=== PATIENT | female | born 1955 | race Hispanic/Latino ===

== ENCOUNTER 2020-06-18 00:52 | Inpatient (IN) | payer OTHER, SELFPAY ==
--- NOTE | ~2020-06-18 | CT_ITS ---
EXAMINATION: CT abdomen pelvis w con INDICATION: Abdominal pain TECHNIQUE: Computed tomographic images of the abdomen and pelvis were obtained after the administrati on of 100 cc of Omnipaque 350 intravenous contrast. The dose-length product (DLP) was 532.62 mGy-cm. Automated exposure control and iterative reconstruction technique were employed. COMPARISON: 12/17/2017 FINDINGS: Minimal dependent atelectasis is present in the lung bases. The heart size is normal. The g allbladder is surgically absent. The liver is diffusely low in attenuation when compared with the spl een, consistent with hepatic steatosis. There is mild fat stranding surrounding the head of the pancr eas. The spleen is normal. There are stable bilateral adrenal masses, consistent with adenomas. There is a 1.4 cm intermediate attenuating lesion in the left kidney. Cysts of the right kidney measure up to 10 mm. There are 2 mm nonobstructing stones in the lower pole of the kidneys. The appendix is nor mal. No pathologically enlarged abdominal or pelvic lymph nodes are identified. There is no free intr aperitoneal gas or evidence of bowel obstruction. There is mild lumbar spondylosis. IMPRESSION: 1. Acute pancreatitis, likely interstitial edematous. 2. Indeterminate right kidney lesion which could reflect a proteinaceous cyst. Follow-up by nonemerge nt MRI without and with contrast is recommended. 3. Bilateral nonobstructing nephrolithiasis. Reviewed, dictated and finalized at location A. TRIMMER IMPRESSION: 1. Acute pancreatitis, likely interstitial edematous. 2. Indeterminate right kidney lesion which could reflect a proteinaceous cyst. Follow-up by nonemergent MRI without and with contrast is recommended. 3. Bilateral nonobstructing nephrolithiasis.
--- NOTE | ~2020-06-18 | MR_ITS ---
EXAMINATION: MR MRCP wo/w con/w 3D wo ind DATE: 06/18/2020 12:15 INDICATION: Epigastric abdominal pain and acute pancreatitis TECHNIQUE: Magnetic resonance imaging (MRI) of the abdomen was performed without and with intravenous contrast. Sequences included coronal T2-weighted SS-FSE ARC, coronal T2-weighted FS SS-FSE, coronal T2-weighted 2D FS FIESTA, Water:Coronal LAVA-Flex, sagittal T2-weighted SS-FSE ARC, axial SSFSE ARC, axial 3D DualEcho, axial DWI B=600, axial T1-weighted LAVA, FAT:Coronal LAVA-Flex, and coronal in and opposed phase LAVA-Flex. Thick-slab T2-weighted FRFSE-XL images were obtained for magnetic resonance cholangiopancreatography (MRCP). Maximum intensity projection 3-D reconstructions of the volumetric data were created by the technologist. Postcontrast sequences included a time course of axial T1-weig hted LAVA, FAT:Coronal LAVA-Flex, coronal in and opposed phase LAVA-Flex, and Water:Coronal LAVA-Flex . COMPARISON: CT from today CONTRAST: Multihance, 15 cc FINDINGS: ABDOMEN MRI: There is loss of hepatic parenchymal signal on opposed phase imaging, consistent with he patic steatosis. The spleen is normal. There are two 2 cm left adrenal masses and a 2 cm right adrena l mass which demonstrate loss of signal intensity on opposed phase images, consistent with adenomas. There are dilated loops of bowel. Cysts of the kidneys measure up to 9 mm on the right. There is a 1. 4 cm hemorrhagic cyst of the left kidney lower pole corresponding to the lesion in question on CT. No pathologically enlarged abdominal lymph nodes are identified. There is a small amount of fluid aroun d the head and body of the pancreas. There is slightly decreased T1 signal in the head of the pancrea s. ABDOMEN MRCP: The gallbladder is surgically absent. There is mild enlargement of the common bile duct up to 7 mm, most consistent with post cholecystectomy state. No biliary stones or stricture are iden tified. The pancreatic duct is normal in course and caliber. IMPRESSION: 1. No biliary stones or stricture identified. 2. Hemorrhagic cyst of the left kidney lower pole corresponding to the lesion in question on the [facility] CT. 3. Acute pancreatitis, likely interstitial edematous Reviewed, dictated and finalized at location A. CONSULTANT IMPRESSION: 1. No biliary stones or stricture identified. 2. Hemorrhagic cyst of the left kidney lower pole corresponding to the lesion i n question on the comparison CT. 3. Acute pancreatitis, likely interstitial edematous
[2020-06-18 01:31] LABS: Basophils Percent Auto 0.2 % (0.2-1.2); Eosinophils Absolute Auto 0.1 K/mm3 (0-0.3); Eosinophils Percent Auto 0.6 % (0-4.4); Hematocrit 44.5 % (37.0-47.0); Hemoglobin 14.6 g/dL (12.0-15.0); Immature Granulocyte Absolute 0.05 K/mm3 (0.00-0.031); Immature Granulocyte Percent A 0.5 % (0-0.5); Lymphocytes Absolute Auto 1.71 K/mm3 (0.9-3.2); Lymphocytes Percent Auto 15.8 % (18.3-44.2); Mean Corpuscular HGB Conc 32.8 g/dl (32-36); Mean Corpuscular Volume 91.6 fl (80-100); Mean Platelet Volume 10.1 fl (7.4-10.4); Monocytes Absolute Auto 0.8 K/mm3 (0.1-0.6); Monocytes Percent Auto 7.4 % (2.6-8.5); Neutrophils Absolute Auto 8.2 K/mm3 (1.3-6.7); Neutrophils Percent Auto 75.5 % (45.5-73.1); Platelet Count Result 251 k/mm3 (150-375); Red Blood Count 4.86 M/mm3 (4.2-5.4); Red Cell Distribution Width 12.9 % (11.5-14.5); White Blood Count 10.8 K/mm3 (4.5-10.0)
[2020-06-18 01:43] LABS: Alanine Aminotransferase 18 U/L (4-35); Albumin Level 4.6 g/dL (3.5-5.1); Alkaline Phosphatase 101 U/L (38-126); Anion Gap 6 mmol/L (8-16); Aspartate Amino Transferase 20 U/L (14-36); Bilirubin,Total 0.6 mg/dL (0.2-1.3); Blood Urea Nitrogen 10 mg/dL (7-17); Calcium 9.4 mg/dL (8.4-10.2); Carbon Dioxide 27 mmol/L (22-30); Chloride 104 mmol/L (98-107); Estimated Glomerular Filt Rate > 60; Glucose 184 mg/dL (65-105); Lipase 221 U/L (23-300); Potassium 3.9 mmol/L (3.4-5.0); Sodium 137 mmol/L (137-145)
[2020-06-18 01:50] VITALS: BP 175/80; PULSE 88; RESP 16; TEMP 36.8; O2SAT 98
[2020-06-18 01:53] LABS: Appearance Urine Clear (Clear); Color Urine Yellow (Yellow); Specific Grav Ur 1.031 (1.001-1.035)
--- NOTE | 2020-06-18 01:53 | ED.ABDPAIN ---
HPI - Abdominal Pain General Chief Complaint: Abdominal Pain Stated Complaint: abd pain Time Seen by Provider: 06/18/20 01:53 History of Present Illness HPI narrative: Severe epigastric pain since late last evening. Sharp. Associated with nausea and bloating. She has had similar pain in the past and was in the hospital for 1 week with an NG tube, she is not sure what the diagnosis was at that time. No vomiting, diarrhea, constipation, fever, cough, SOB. Related Data Home Medications Medication Instructions Recorded Confirmed No Home Medications 06/18/20 06/18/20 Allergies Allergy/AdvReac Type Severity Reaction Status Date / Time vancomycin Allergy Intermediate Redness of Verified 06/18/20 02:05 Skin aspirin Allergy Unknown Itching Verified 06/18/20 02:05 Review of Systems Review of Systems: All systems reviewed & are unremarkable except as noted in HPI and below Constitutional: Constitutional: Denies chills and Denies fever(s) ENT: Denies sore throat Cardiovascular: Cardiovascular: Denies chest pain Respiratory: Respiratory: Denies dyspnea Gastrointestinal: Gastrointestinal: Reports abdominal pain, Denies constipation, Denies diarrhea, Reports nausea and Denies vomiting Genitourinary: Genitourinary: Denies hematuria and Denies dysuria Neurologic: Denies dizziness and Denies weakness PMFSH Past Medical History Medical History (Updated 06/18/20 @ 03:16 by Andrés Flores MD) Chondromalacia, right knee Diabetes mellitus Surgical History Surgical History (Updated 06/18/20 @ 03:13 by Andrés Flores MD) Hx of cholecystectomy Family History Family History Other Cerebrovascular accident Diabetes mellitus Family history of cardiovascular disease Hypertension Social History Social History Smoking status: Smoker, status unknown Alcohol intake: never Exam Const: General: no acute distress and alert Orientation/consciousness: patient oriented x3 HENMT: Head: normal to inspection Neck: Neck: normal visual inspection Resp: Effort & Inspection: normal respiratory effort Auscultation: clear to auscultation bilaterally Cardio: Rate: regular rate Rhythm: regular rhythm GI: Inspection: distended GI Palp: Yes Tenderness to palpation present (GI) (epigastrium), No Guarding due to palpation present (GI) and No Rebound tenderness present Skin: General skin exam: normal color Neuro: General: patient oriented x3, moves all extremities and CN's II-XI intact bilaterally Speech: normal speech Gait exam (Neuro): Normal gait present Extrem: General: normal to inspection Course Vital Signs Vital signs: Vital Signs Temperature 36.8 C 06/18/20 01:50 Pulse Rate 88 06/18/20 01:50 Respiratory Rate 16 06/18/20 01:50 Blood Pressure 175/80 H 06/18/20 01:50 Pulse Oximetry 98 06/18/20 01:50 Temperature 36.8 C 06/18/20 01:50 Pulse Rate 84 06/18/20 03:01 Respiratory Rate 16 06/18/20 03:01 Blood Pressure 147/75 H 06/18/20 03:01 Pulse Oximetry 97 06/18/20 03:01 MDM - Abdominal Pain MDM Narrative Medical decision making narrative: CT read as acute pancreatis. Lipase normal. Amylase added on. I will admit for fluids and pain control. Differential Diagnosis Differential diagnosis: Likely constipation, diverticulitis, pancreatitis and small bowel obstruction Medical Records Attestation: I reviewed the patient's medical records. Lab Data Attestation: I reviewed the patient's lab results. Result diagrams: 06/18/20 01:03 06/18/20 01:03 Labs: Lab Results 06/18/20 06/18/20 06/18/20 Range/Units 01:03 01:03 01:14 WBC 10.8 H (4.5-10.0) K/mm3 RBC 4.86 (4.2-5.4) M/mm3 Hgb 14.6 (12.0-15.0) g/dL Hct 44.5 (37.0-47.0) % MCV 91.6 (80-100) fl MCH 30.0 (26-34) pg MCHC 32.8 (32-3
[2020-06-18 01:54] LABS: Blood Urine Negative (Negative); Glucose Urine UA 3+ mg/dL (Negative); Ketones Urine 1+ mg/dL (Negative); Nitrate Urine Negative (Negative); Protein Urine Negative (Negative)
[2020-06-18 01:55] LABS: Add Urine Microscopic? YES; Bilirubin Urine Negative (Negative); Leukocyte Esterase Ur Negative LEU/UL (Negative); Urobilinogen Urine Negative mg/dL (<2.0)
[2020-06-18 01:57] LABS: Mucus Urine Rare /lpf; Squamous Epithelial Cell Urine Rare /hpf (Few); WBC Urine 0-3 /hpf
[2020-06-18] MEDS: ONDANSETRON INJ 4 MG/2 ML VIAL IV PUSH ×3 (02:52→19:29)
[2020-06-18] MEDS: MORPHINE SULFATE (*CRX) 4 MG/ML INJ IV PUSH ×5 (02:52→19:28)
[2020-06-18 03:01] VITALS: BP 147/75; PULSE 84; RESP 16; O2SAT 97
[2020-06-18 03:59] VITALS: BP 151/74; PULSE 92; RESP 16; O2SAT 97
[2020-06-18 04:05] LABS: Amylase 73 U/L (30-110)
[2020-06-18 04:35] VITALS: BP 155/79; PULSE 95; RESP 16; TEMP 36.6; O2SAT 100; BMI 27.6
--- NOTE | 2020-06-18 04:35 | ADMGEN ---
This patient, Daphne Guido, was admitted to Medical Room 340-01. Patient/family oriented to hospital policies and general routines including ID bracelet, bed and alarms, visiting hours, pain management, procedures, bathroom and other care routines, personal items, smoking policy, room service/diet, and visiting hours. Information on how to activate the Rapid Response Team has been discussed. Patient/Family are encouraged to report perceived risks to care and to ask questions if they do not understand what they are told or what they should do.
[2020-06-18] MEDS: LACTATED RINGERS 1,000 ML 150 ML IV CONT ×3 (04:46→20:47)
[2020-06-18 08:01] LABS: Hematocrit 42.5 % (37.0-47.0); Hemoglobin 14.1 g/dL (12.0-15.0); Mean Corpuscular HGB Conc 33.2 g/dl (32-36); Mean Corpuscular Hemoglobin 30.1 pg (26-34); Mean Corpuscular Volume 90.8 fl (80-100); Mean Platelet Volume 9.9 fl (7.4-10.4); Platelet Count Result 228 k/mm3 (150-375); Red Blood Count 4.68 M/mm3 (4.2-5.4); Red Cell Distribution Width 13.1 % (11.5-14.5); White Blood Count 8.8 K/mm3 (4.5-10.0)
[2020-06-18 08:08] LABS: Alanine Aminotransferase 205 U/L (4-35); Albumin Level 4.1 g/dL (3.5-5.1); Alkaline Phosphatase 143 U/L (38-126); Anion Gap 8 mmol/L (8-16); Aspartate Amino Transferase 446 U/L (14-36); Bilirubin,Total 1.3 mg/dL (0.2-1.3); Blood Urea Nitrogen 9 mg/dL (7-17); Calcium 8.7 mg/dL (8.4-10.2); Carbon Dioxide 26 mmol/L (22-30); Chloride 106 mmol/L (98-107); Cholesterol 132 mg/dL (0-200); Estimated CRCL calculation 98 ml/min; Estimated Glomerular Filt Rate > 60; Glucose 143 mg/dL (65-105); HDL Direct 65 mg/dL; Lipase 124 U/L (23-300); Sodium 140 mmol/L (137-145); Triglycerides 46 mg/dL (<150)
[2020-06-18] MEDS: SODIUM CHLORIDE 0.9% INJ 10 ML 100 ML (08:13)
[2020-06-18] MEDS: PANTOPRAZOLE SODIUM IV 40 MG VIAL IV PUSH (08:13)
[2020-06-18 08:19] LABS: LDL Cholesterol Direct 49 mg/dL
[2020-06-18 08:20] LABS: Glucose Point of Care 142 (65-105)
--- NOTE | 2020-06-18 09:45 | PM.IMHP ---
H&P: HPI History of Present Illness Date/Time: 06/18/20 09:45 Chief Complaint: abdominal pain x 2 days Narrative: Daphne Guido is a 64 year old female with history of DMII and s/p cholecystectomy (6-7 years ago) who presented to the ED on 06/18 from home with complaints of severe epigastric abdominal pain. Patient speaks very little Lebanese, but uses her granddaughter, Isaura, as an clerical assistant. Patient states she woke up around 0100 today with severe epigastric pain that radiated to her back between her shoulder blades. In EMR, it notes she has had abdominal pain for 2 days, but she denies this. She states she had no n/v/d when symptoms started, but now is feeling somewhat nauseous when pain worsens. When pain is at its worse, she notes sharp pain at 10/10 in intensity; currently her pain is at 7/10. She states she had been admitted to [facility] around this time last year with similar complaints but is unsure of her diagnosis at that time. She has had no recent changes in medications or diet. No sick contacts at home. She has been taking Invokana for over a year, now. She denies any changes in BMs, nor any bloody stools or black/tarry stools. Other associated symptoms include headaches associated with the abdominal pain. No other complaints at the moment. Denies f/c/s, dizziness, lightheadedness, changes in v/h, cp/palpitations, sob/cough, dysuria, hematuria, cloudy urine, calf pain/swelling. While in the ED, Ct abd/pelvis was performed and showed signs of acute pancreatitis, likely interstitial edematous; indeterminate right kidney lesion and bilateral nonobstructing nephrolithiasis noted. Serum lipase, amylase, bili and LFTs were WNL on arrival; this morning, LFTs have risen significantly to AST of 446 and ALT 205 with bili at 1.3. Other labs and diagnostics unremrakble. VS were relatively stable on arrival with BP elevated in 170s sys, but has since improved, although still elevated. Review of Systems Review of Systems: All systems reviewed & are unremarkable except as noted in HPI and below PMFSH Past Medical History Medical History (Updated 06/18/20 @ 10:03 by Benjie Bolden PA-C) Chondromalacia, right knee Diabetes mellitus Surgical History Surgical History (Updated 06/18/20 @ 09:57 by Benjie Bolden PA-C) History of abdominal surgery benign masses removed per patient History of breast lump removal History of hysterectomy Hx of cholecystectomy Family History Family History Other Cerebrovascular accident Diabetes mellitus Family history of cardiovascular disease Hypertension Social History Social History Social History: Patient states she lives at home alone. She wishes to be a Full Code. Her PCP is ISAIAS Egan Smoking packs per day: 0.1 Smoking cigarettes per day: 2.0 Years smoked: 22 Smoking pack-years: 2.20 Smoking status: Current every day smoker Tobacco type: cigarettes Alcohol intake: never Substance use: never Gender identity (if verbalized by the patient): Female Spiritual care concerns: No Meds Home Medications and Allergies Home Medications Medication Instructions Recorded Confirmed Type Invokana 20 mg PO DAILY 06/18/20 06/18/20 History atorvastatin 10 mg PO DAILY 06/18/20 06/18/20 History pantoprazole [Protonix] 40 mg PO DAILY 06/18/20 06/18/20 History Allergies Allergy/AdvReac Type Severity Reaction Status Date / Time vancomycin Allergy Intermediate Redness of Verified 06/18/20 04:32 Skin aspirin Allergy Unknown Itching Verified 06/18/20 04:32 Vital Signs Vital Signs - 24 hr 06/18/20 01:50 06/18/20 03:01 06/18/20 03:59 Temperature 98.2 F Pulse Rate 88 84 92 Respiratory Rate 16 16 16 Blood Pressure 175/80 H 147/75 H 151/74 H Pulse Oximetry 98 97 97 06/18/20 04:35 Temperature 97.8 F Pulse Rate 95 Respiratory Rate 16
[2020-06-18 09:57] LABS: Hemoglobin A1C 9.8 % (<5.7)
[2020-06-18 14:00] VITALS: BP 112/53; PULSE 92; RESP 16; TEMP 35.7; O2SAT 95
[2020-06-18 14:00] LABS: Glucose Point of Care 119 (65-105)
[2020-06-18] MEDS: MORPHINE SULFATE (*CRX) 2 MG/ML INJ IV PUSH (14:03)
[2020-06-18 16:49] LABS: Glucose Point of Care 122 (65-105)
[2020-06-18 19:20] VITALS: BP 141/73; PULSE 92; RESP 17; TEMP 36.1; O2SAT 96
[2020-06-18 23:37] LABS: Glucose Point of Care 110 (65-105)
[2020-06-19 04:39] VITALS: BP 156/78; PULSE 92; RESP 18; TEMP 36.5; O2SAT 98
[2020-06-19] MEDS: MORPHINE SULFATE (*CRX) 2 MG/ML INJ IV PUSH ×2 (04:45→09:19)
[2020-06-19] MEDS: ONDANSETRON INJ 4 MG/2 ML VIAL IV PUSH ×4 (04:45→20:00)
[2020-06-19 05:46] LABS: Hemoglobin 13.1 g/dL (12.0-15.0); Mean Corpuscular Hemoglobin 29.6 pg (26-34); Mean Corpuscular Volume 92.8 fl (80-100); Mean Platelet Volume 10.1 fl (7.4-10.4); Platelet Count Result 245 k/mm3 (150-375); Red Blood Count 4.42 M/mm3 (4.2-5.4); Red Cell Distribution Width 13.2 % (11.5-14.5)
[2020-06-19 05:59] LABS: Alanine Aminotransferase 227 U/L (4-35); Alkaline Phosphatase 134 U/L (38-126); Anion Gap 12 mmol/L (8-16); Aspartate Amino Transferase 130 U/L (14-36); Bilirubin,Total 0.7 mg/dL (0.2-1.3); Blood Urea Nitrogen 11 mg/dL (7-17); Calcium 8.8 mg/dL (8.4-10.2); Carbon Dioxide 18 mmol/L (22-30); Chloride 109 mmol/L (98-107); Estimated CRCL calculation 83 ml/min; Estimated Glomerular Filt Rate > 60; Glucose 100 mg/dL (65-105); Lipase 91 U/L (23-300); Magnesium 1.8 mg/dL (1.6-2.3); Sodium 139 mmol/L (137-145)
[2020-06-19] MEDS: LACTATED RINGERS 1,000 ML 100 ML IV CONT ×3 (06:28→23:00)
[2020-06-19 06:32] LABS: Glucose Point of Care 90 (65-105)
[2020-06-19 08:03] VITALS: O2SAT 95
[2020-06-19] MEDS: SODIUM CHLORIDE 0.9% INJ 10 ML 100 ML (09:18)
[2020-06-19] MEDS: PANTOPRAZOLE SODIUM IV 40 MG VIAL IV PUSH (09:18)
--- NOTE | 2020-06-19 11:07 | PM.IMPN ---
Progress Note: A&P Assessment and Plan (1) Acute pancreatitis: Code(s): K85.90 - Acute pancreatitis without necrosis or infection, unspecified Status: Acute Assessment and Plan: CT abd/pelvis and MRCP findings and PE/history suggestive of acute pancreatitis with normal lipase/amylase. LFTs stable but still elevated this morning with bili WNL. Triglycerides well within normal limits. She is s/p cholecystectomy 6-7 years ago. MRCP shows no evidence of biliary stones or strictures. Etiology unclear at this time, although possible medication induced (Invokana now held). She overall feels better although had worsened episode of pain and n/v this morning. Will continue NPO with ice chips diet for now and plan to advance diet hopefully tomorrow if continued improvement IV fluids Will do IV pain control with morphine; will reduce dose today Continue home PPI as IV for now Obtain records from [facility] for similar presentation last year with unclear diagnosis Monitor closely (2) Elevated LFTs: Code(s): R79.89 - Other specified abnormal findings of blood chemistry Status: Acute Assessment and Plan: Likely related to acute pancreatitis or possible hepatic steatosis noted on CT abd/pelvis see above a/p Will to hepatitis panel tomorrow although this seems less likely (3) Diabetes mellitus: Code(s): E11.9 - Type 2 diabetes mellitus without complications Status: Inactive Assessment and Plan: Patient has been on Invokana for >1 year; this has been held as it can cause pancreatitis. A1c 9.8 Accuchecks Q6hr, hypoglycemia protocol, correctional insulin, diabetic diet once tolerating diet She will need prompt follow up with PCP about further management in DM Subjective Date/time seen: 06/19/20 11:07 Interval history: Patient is a 64 year old female with history of DMII and s/p cholecystectomy (6-7 years ago) who is seen in follow up for acute pancreatitis with unknown etiology although suspect medication induced. Patient speaks Brazilian and wishes to use brother, Kodak, as park interpreter via cell phone. Patient states overall she felt better overnight and this morning, but then began to have pain again and n/v this morning. She was given IV pain medication and zofran with improvement of symptoms. Pain now 7/10; this does not radiate. She does have a headache. No other complaints. Denies f/c/s, cp/palpitations, sob/cough, calf pain/swelling. Review of Systems Review of Systems: All systems reviewed & are unremarkable except as noted in HPI and below Exam Narrative: Exam Narrative: General: Patient resting supine with head raised in bed in no acute distress. Speaks Brazilian and little Frisian and wished to have brother Kodak to interpret HEENT: Normocephalic, EOMI, oral mucosa moist. Cardiovascular: Rate and rhythm are regular. No notable murmur, rub, or gallop. Respiratory: Lungs clear to auscultation anterolateral lung galvan. Non-labored breathing. Abdomen: Soft, ttp epigastric region, non-distended, bowel sounds present, although hypoactive. Extremities: Peripheral pulses intact. No edema. NTTP b/l calves Neuro: No focal neurological deficits. Speech is clear. Objective Data Vital Signs Vital Signs: Last Vital Signs Temp 97.7 F 06/19/20 04:39 Pulse 92 06/19/20 04:39 Resp 18 06/19/20 04:39 BP 156/78 H 06/19/20 04:39 Pulse Ox 95 06/19/20 08:03 Intake/Output Intake/Output: Intake & Output 06/16/20 06/17/20 06/18/20 06/19/20 23:59 23:59 23:59 23:59 Intake Total 1999 960 Output Total 100 Balance 1900 960 Meds/Results Medications: Active Medications Generic Name Dose Route Start Last Admin Trade Name Freq PRN Reason Stop Dose Admin Dextrose 12.5 gm 06/18/20 07:21 Dextrose 50% 25 Gm/50 Ml Syringe IV PUSH PRN PRN
[2020-06-19 13:30] LABS: Glucose Point of Care 97 (65-105)
[2020-06-19 14:00] VITALS: BP 141/76; PULSE 86; RESP 18; TEMP 36.4; O2SAT 99
[2020-06-19] MEDS: MORPHINE SULFATE (*CRX) 4 MG/ML INJ 2 MG IV PUSH ×2 (15:11→19:59)
[2020-06-19 18:52] LABS: Glucose Point of Care 89 (65-105)
[2020-06-19 19:58] VITALS: BP 140/67; PULSE 86; RESP 17; TEMP 36.5; O2SAT 98
[2020-06-20 02:49] LABS: Glucose Point of Care 75 (65-105)
[2020-06-20] MEDS: MORPHINE SULFATE (*CRX) 2 MG/ML INJ 1 MG IV PUSH (03:36)
[2020-06-20] MEDS: ONDANSETRON INJ 4 MG/2 ML VIAL IV PUSH ×2 (03:39→13:26)
[2020-06-20 04:55] VITALS: BP 144/72; PULSE 79; RESP 16; TEMP 36.4; O2SAT 99
[2020-06-20 05:48] LABS: Alanine Aminotransferase 154 U/L (4-35); Albumin Level 4.1 g/dL (3.5-5.1); Alkaline Phosphatase 127 U/L (38-126); Anion Gap 15 mmol/L (8-16); Aspartate Amino Transferase 51 U/L (14-36); Bilirubin,Total 0.6 mg/dL (0.2-1.3); Blood Urea Nitrogen 10 mg/dL (7-17); Calcium 8.9 mg/dL (8.4-10.2); Carbon Dioxide 14 mmol/L (22-30); Chloride 108 mmol/L (98-107); Estimated CRCL calculation 98 ml/min; Estimated Glomerular Filt Rate > 60; Glucose 115 mg/dL (65-105); Magnesium 1.7 mg/dL (1.6-2.3); Potassium 3.6 mmol/L (3.4-5.0); Sodium 137 mmol/L (137-145)
[2020-06-20 06:45] LABS: Hepatitis B Surface Antigen Negative (Negative)
[2020-06-20 06:51] LABS: HAV RESULT Negative (Negative); Hepatitis B Core IgM Result Negative (Negative)
[2020-06-20 07:03] LABS: Hepatitis C Virus Antibody Negative (Negative)
[2020-06-20 07:07] LABS: Glucose Point of Care 101 (65-105)
[2020-06-20 07:34] VITALS: O2SAT 95
--- NOTE | 2020-06-20 07:45 | PM.IMPN ---
Progress Note: A&P Assessment and Plan (1) Acute pancreatitis: Code(s): K85.90 - Acute pancreatitis without necrosis or infection, unspecified Status: Acute Assessment and Plan: CT abd/pelvis and MRCP findings and PE/history suggestive of acute pancreatitis with normal lipase/amylase. LFTs stable and somewhat improved this morning with bili WNL. Triglycerides well within normal limits. She is s/p cholecystectomy 6-7 years ago. MRCP shows no evidence of biliary stones or strictures. Etiology unclear at this time, although possible medication induced (Invokana now held). She overall feels better although had worsened episode of pain and n/v this morning. She is willing to try CLD later this morning Will advance to CLD; advance slowly, likely FLD tonight if tolerating IV fluids continue Will do PO pain control with Tylenol and norco with IV morphine for breakthrough pain Continue home PPI as IV for now Obtain records from [facility] for similar presentation last year with unclear diagnosis Monitor closely (2) Elevated LFTs: Code(s): R79.89 - Other specified abnormal findings of blood chemistry Status: Acute Assessment and Plan: Likely related to acute pancreatitis or possible hepatic steatosis noted on CT abd/pelvis. Hepatitis panel negative see above a/p (3) Diabetes mellitus: Code(s): E11.9 - Type 2 diabetes mellitus without complications Status: Inactive Assessment and Plan: Patient has been on Invokana for >1 year; this has been held as it can cause pancreatitis. A1c 9.8 Accuchecks Q6hr, hypoglycemia protocol, correctional insulin, diabetic diet once tolerating diet She will need prompt follow up with PCP about further management in DM Subjective Date/time seen: 06/20/20 07:45 Interval history: Patient is a 64 year old female with history of DMII and s/p cholecystectomy (6-7 years ago) who is seen in follow up for acute pancreatitis with unknown etiology although suspect medication induced. Patient speaks Uzbek but today communicates okay in Moldovan and understands our conversation adequately. She tells me she had epigastric pain around 2 or 3 this am; this was accompanied by nausea and mild episode of vomiting. She was given morphine with improvement in her pain. Of note, nursing reports that she had BGL of 75 and was given orange juice and tolerated well. She wishes to advance her diet a little bit later this morning. She does report a headache again today. No other complaints at this time. No other complaints. Denies f/c/s, cp/palpitations, sob/cough, calf pain/swelling. Review of Systems Review of Systems: All systems reviewed & are unremarkable except as noted in HPI and below Exam Narrative: Exam Narrative: General: Patient resting supine with head raised in bed in no acute distress. HEENT: Normocephalic, EOMI, oral mucosa moist. Cardiovascular: Rate and rhythm are regular. No notable murmur, rub, or gallop. Respiratory: Lungs clear to auscultation anterolateral lung galvan. Non-labored breathing. Abdomen: Soft, ttp epigastric region, non-distended, bowel sounds present Extremities: Peripheral pulses intact. No edema. NTTP b/l calves Neuro: No focal neurological deficits. Speech is clear. Objective Data Vital Signs Vital Signs: Last Vital Signs Temp 97.6 F 06/20/20 04:55 Pulse 79 06/20/20 04:55 Resp 16 06/20/20 04:55 BP 144/72 H 06/20/20 04:55 Pulse Ox 95 06/20/20 07:34 Intake/Output Intake/Output: Intake & Output 06/17/20 06/18/20 06/19/20 06/20/20 23:59 23:59 23:59 23:59 Intake Total 1999 3080 100 Output Total 100 Balance 1900 3080 100 Meds/Results Medications: Active Medications Generic Name Dose Route Start Last Admin Trade Name Freq PRN Reason Stop Dose Admin Dextrose 12.5 gm
[2020-06-20] MEDS: SODIUM CHLORIDE 0.9% INJ 10 ML 100 ML (08:31)
[2020-06-20] MEDS: PANTOPRAZOLE SODIUM IV 40 MG VIAL IV PUSH (08:32)
[2020-06-20 13:17] LABS: Glucose Point of Care 267 (65-105)
[2020-06-20] MEDS: amLODIPine BESYLATE 5 MG TABLET PO (13:17)
[2020-06-20] MEDS: INSULIN ASPART (*BKC) 100 UNITS/ML SUB-Q (13:18)
[2020-06-20 14:00] VITALS: BP 132/78; PULSE 77; RESP 16; TEMP 36.2; O2SAT 98
[2020-06-20] MEDS: ACETAMINOPHEN 325 MG TABLET 650 MG PO (17:05)
[2020-06-20 17:25] LABS: Glucose Point of Care 130 (65-105)
[2020-06-20 19:45] VITALS: O2SAT 96
[2020-06-20 20:00] VITALS: BP 130/73; PULSE 78; RESP 17; TEMP 36.6; O2SAT 99
[2020-06-21] MEDS: ONDANSETRON INJ 4 MG/2 ML VIAL IV PUSH ×2 (01:09→07:55)
[2020-06-21] MEDS: HYDROcodone/acetaminophen (*CRX) 5-325 MG TABLET 1 TAB PO ×2 (01:09→10:40)
[2020-06-21 01:16] LABS: Glucose Point of Care 252 (65-105)
[2020-06-21 04:56] VITALS: BP 117/67; PULSE 81; RESP 17; TEMP 36.4; O2SAT 96
[2020-06-21 05:58] LABS: Alanine Aminotransferase 104 U/L (4-35); Albumin Level 3.9 g/dL (3.5-5.1); Alkaline Phosphatase 115 U/L (38-126); Anion Gap 9 mmol/L (8-16); Aspartate Amino Transferase 27 U/L (14-36); Bilirubin,Total 0.4 mg/dL (0.2-1.3); Blood Urea Nitrogen 8 mg/dL (7-17); Calcium 8.8 mg/dL (8.4-10.2); Carbon Dioxide 26 mmol/L (22-30); Chloride 105 mmol/L (98-107); Estimated CRCL calculation 98 ml/min; Estimated Glomerular Filt Rate > 60; Glucose 160 mg/dL (65-105); Magnesium 1.8 mg/dL (1.6-2.3); Potassium 3.3 mmol/L (3.4-5.0); Sodium 140 mmol/L (137-145)
[2020-06-21 07:05] LABS: Glucose Point of Care 160 (65-105)
[2020-06-21] MEDS: PANTOPRAZOLE SODIUM IV 40 MG VIAL IV PUSH (08:19)
[2020-06-21] MEDS: amLODIPine BESYLATE 5 MG TABLET PO (08:19)
--- NOTE | 2020-06-21 11:52 | PM.DS ---
DS: Admitting Diagnosis Admitting Diagnosis Admitting Diagnosis: Acute pancreatitis DS: Discharge Diagnosis Discharge Diagnosis (1) Acute pancreatitis: Code(s): K85.90 - Acute pancreatitis without necrosis or infection, unspecified Status: Acute Assessment and Plan: CT abd/pelvis and MRCP findings and PE/history suggestive of acute pancreatitis with normal lipase/amylase. LFTs improving this morning with bili WNL. Triglycerides well within normal limits. She is s/p cholecystectomy 6-7 years ago. MRCP shows no evidence of biliary stones or strictures. Etiology unclear at this time, although possible medication induced (Invokana now held). She is tolerating low fat diet, although still needing [place] for pain occasionally. Overall feeling much better. She is comfortable with d/c today Will do low fat/diabetic diet at discharge F/u with PCP Pain control with Tylenol; [place] to be used if Tylenol provides no relief. Will provide zofran as needed as well (2) Elevated LFTs: Code(s): R79.89 - Other specified abnormal findings of blood chemistry Status: Acute Assessment and Plan: Improved. Likely related to acute pancreatitis or possible hepatic steatosis noted on CT abd/pelvis. Hepatitis panel negative CMP in 1 week see above a/p (3) Diabetes mellitus: Code(s): E11.9 - Type 2 diabetes mellitus without complications Status: Inactive Assessment and Plan: Patient has been on Invokana for >1 year; this has been held as it can cause pancreatitis. A1c 9.8 Accuchecks ACHS, hypoglycemia protocol, correctional insulin, diabetic/low fat diet when tolerating diet She will need prompt follow up with PCP about further management in DM. She understands these instructions DS: Summary Hospital Course Reason for hospitalization: Acute pancreatitis Hospital Course: Date of arrival: 06/18/20 Date of discharge: 06/21/20 From H&P 06/18/20 Chief Complaint: abdominal pain x 2 days Narrative: Daphne Guido is a 64 year old female with history of DMII and s/p cholecystectomy (6-7 years ago) who presented to the ED on 06/18 from home with complaints of severe epigastric abdominal pain. Patient speaks very little Hebrew, but uses her granddaughter, Isaura, as an meat lugger. Patient states she woke up around 0100 today with severe epigastric pain that radiated to her back between her shoulder blades. In EMR, it notes she has had abdominal pain for 2 days, but she denies this. She states she had no n/v/d when symptoms started, but now is feeling somewhat nauseous when pain worsens. When pain is at its worse, she notes sharp pain at 10/10 in intensity; currently her pain is at 7/10. She states she had been admitted to [facility] around this time last year with similar complaints but is unsure of her diagnosis at that time. She has had no recent changes in medications or diet. No sick contacts at home. She has been taking Invokana for over a year, now. She denies any changes in BMs, nor any bloody stools or black/tarry stools. Other associated symptoms include headaches associated with the abdominal pain. No other complaints at the moment. Denies f/c/s, dizziness, lightheadedness, changes in v/h, cp/palpitations, sob/cough, dysuria, hematuria, cloudy urine, calf pain/swelling. While in the ED, Ct abd/pelvis was performed and showed signs of acute pancreatitis, likely interstitial edematous; indeterminate right kidney lesion and bilateral nonobstructing nephrolithiasis noted. Serum lipase, amylase, bili and LFTs were WNL on arrival; this morning, LFTs have risen significantly to AST of 446 and ALT 205 with bili at 1.3. Other labs and diagnostics unremrakble. VS were relatively stable on arrival with BP elevated in 170s sys, but has since improved, although still elevated. Patient was admitted to
[2020-06-21 12:07] LABS: Glucose Point of Care 203 (65-105)
[2020-06-21] MEDS: INSULIN ASPART (*BKC) 100 UNITS/ML SUB-Q (12:36)
== END 2020-06-21 13:20 | disposition home or self-care (01) | DRG 440 ==
LOC: ANHED 03:16 → ANH3MED 05:12
PROVIDERS: Admitting Provider Internal Medicine; Emergency Provider Emergency Medicine; PCP Registered Nurse; Visit Provider Physician Assistant
DX: K85.90 Acute pancreatitis without necrosis or infection, unspecified (principal); R79.89 Other specified abnormal findings of blood chemistry; E11.9 Type 2 diabetes mellitus without complications; F17.210 Nicotine dependence, cigarettes, uncomplicated; Z79.899 Other long term (current) drug therapy; Z90.49 Acquired absence of other specified parts of digestive tract
CPT/HCPCS: 36415; 74177; 74183; 76376; 80053; 80061; 80074; 81001; 82150; 82948; 83036; 83690; 83735; 85025; 85027; 96374; 96375; 99285; A9270; A9577; C9113; J0131; J1815; J2270; J2405; J7120; Q9967

== ENCOUNTER 2020-08-11 06:27 | Inpatient (IN) | payer OTHER, SELFPAY ==
[2020-08-11] VITALS (7 sets, daily range): BP systolic 140–189; BP diastolic 59–98; PULSE 60–77; RESP 12–22; TEMP 36–36.6; O2SAT 97–100; BMI 24.8
--- NOTE | ~2020-08-11 | CT_ITS ---
EXAMINATION: CT abdomen pelvis wo con DATE: 08/15/2020 12:48 INDICATION: Persistent abdominal pain. TECHNIQUE: Computed tomography (CT) of the abdomen and pelvis was performed without intravenous contr ast. Automated exposure control and iterative reconstruction technique were employed. The dose-length product was 557.41 mGy-cm. COMPARISON: 08/11/2020 FINDINGS: Moderate discoid atelectasis in the bilateral lower lung zones. Heart size is normal. Small amount of atherosclerotic coronary artery calcification. No pericardial or pleural effusion. Cholecystectomy c lips at the gallbladder fossa. Liver, spleen and pancreas are normal. No significant change in a coup le low-attenuation adrenal adenomas in both the left and right adrenal glands, the largest on the lef t measuring There is moderate colonic diverticulosis with a sigmoid predominance. There is no adjace nt inflammatory change to suggest diverticulitis. Small bowel and appendix are normal. A couple 1-2 m m nonobstructing stones in the left kidney. Mild right hydroureteronephrosis extending to the bladder with no evident obstructing stones or masses. The uterus is not identified and has likely been surgi yaw resected. Surgical clips along the bilateral common and external iliac vessels consistent with prior pelvic lymph node dissection. Bladder is normal. No free intraperitoneal gas or fluid. No patho logically enlarged abdominal or pelvic lymphadenopathy. Mild thoracolumbar dextrocurvature with mild spondylosis. IMPRESSION: 1. Persistent mild right hydroureteronephrosis without evident obstructing stone or mass. The stone s een 4 days previously at the right ureterovesicular junction is no longer present and has likely pass ed. 2. A couple tiny nonobstructing left renal stones. 3. Diverticulosis. Reviewed, dictated and finalized at location A. IMPRESSION: 1. Persistent mild right hydroureteronephrosis without evident obstructing ston e or mass. The stone seen 4 days previously at the right ureterovesicular junct ion is no longer present and has likely passed. 2. A couple tiny nonobstructing left renal stones. 3. Diverticulosis.
--- NOTE | ~2020-08-11 | US_ITS ---
EXAMINATION: US renal BI EXAM DATE: 08/14/2020 14:52 INDICATION: right flank pain s/p stent removal. TECHNIQUE: Multiple grayscale and Doppler images of the kidneys were obtained (by a technologist who performed the scan) and subsequently reviewed. There is no prior study for comparison. FINDINGS: Right kidney: There is normal contour and echogenicity. It measures 11.9 x 6.5 x 5.7 centimeters. T here are no focal renal lesions identified. There is no hydronephrosis. Left kidney: There is normal contour and echogenicity. It measures 10.6 x 5.9 x 6.0 centimeters. Art ifact at lower pole of left kidney on color flow which could be from nonobstructing small calyceal st one. There is no hydronephrosis. Bladder unremarkable. IMPRESSION: 1. No hydronephrosis. 2. Probable nonobstructing small left nephrolithiasis. Reviewed, dictated and finalized at location B.
--- NOTE | ~2020-08-11 | US_ITS ---
EXAMINATION: US abdomen limited DATE: 08/12/2020 08:06 INDICATION: Elevated liver function tests TECHNIQUE: Multiple grayscale and Doppler ultrasound images of the abdomen were obtained. COMPARISON: CT, 08/11/2020 FINDINGS: The head and body of the pancreas are normal. The pancreatic tail is obscured by bowel gas. The liver is normal with normal echogenicity and echotexture. No surface nodularity. Normal hepatope carlos flow in the main portal vein. The gallbladder is surgically absent. The normal common bile duct m easures 6 mm. IMPRESSION: 1. No sonographic correlate for the patient's symptoms. Reviewed, dictated and finalized at location A.
--- NOTE | ~2020-08-11 | XR_ITS ---
EXAMINATION: XR abdomen/kub 1V INDICATION: Right ureterovesicular junction stone TECHNIQUE: Supine views of the abdomen were obtained on 2 radiographs. COMPARISON: CT, 08/11/2020 FINDINGS: The 3 mm right ureterovesicular junction stone described on the comparison CT is not defini tely identified. Overlying bowel gas and contents partially obscure the expected position of the uret erovesicular junction. There are no dilated loops of bowel. A large volume of colonic stool is presen t. Cholecystectomy clips are noted there are also changes of bilateral retroperitoneal lymph node dis section. The visualized lung bases are clear. IMPRESSION: 1. Right ureterovesicular junction stone described on CT not definitely identified. Reviewed, dictated and finalized at location A. IMPRESSION: 1. Right ureterovesicular junction stone described on CT not definitely identif ied.
--- NOTE | ~2020-08-11 | XR_ITS ---
EXAMINATION: XR retrograde pyelo w/stent RT EXAM DATE: 08/12/2020 13:00 INDICATION: Right UVJ 3 mm stone TECHNIQUE: Fluoroscopy used during XR retrograde pyelo w/stent RT performed by Dr. Kenan Devi MD, urologist. The radiologist Dominic Ledesma M.D. dictating this report of the image(s) available wa s not present for the procedure. Total fluoroscopic time of 17 seconds. The DAP for this procedure was 220 radcm2. A total of 4 images sent to PACS from the exam. Cine run(s) available for review. FINDINGS: Right ureter was cannulated and injected, retrograde pyelogram. Evidence of mild hydroneph rosis. A double-J ureteral stent was placed. Correlate with procedure note. IMPRESSION: Mild right hydronephrosis. Stent in position. Reviewed, dictated and finalized at location B.
--- NOTE | ~2020-08-11 | CT_ITS ---
EXAMINATION: CT abdomen pelvis wo con DATE: 08/11/2020 07:43 INDICATION: Right flank and lower abdomen pain. Nausea. Hematuria. History kidney stones. TECHNIQUE: Computed tomography (CT) of the abdomen and pelvis was performed without intravenous contr ast. Automated exposure control and iterative reconstruction technique were employed. Exam dose: 273 .60 mGy-cm total exam DLP. COMPARISON: 06/28/[address] abdomen pelvis FINDINGS: Normal heart size. No pericardial or pleural effusion. Mild atelectasis at the lung bases. Status post cholecystectomy. The liver, spleen, pancreas, bile ducts and pancreatic duct are unremark able. Bilateral stable low-attenuation adrenal masses, likely adenomas. Bilateral renal lesions are demonstrated to better advantage on 06/28/2020 CT abdomen pelvis examinati on with IV contrast material. Approximately 3 mm right ureterovesical junction calculus with mild right hydroureteronephrosis. One or 2 pinpoint nonobstructing left renal calculi. No left ureteral calculus or left hydroureterone phrosis. The urinary bladder is relatively evacuated, unremarkable. Status post hysterectomy. Normal caliber of the abdominal aorta. No intraperitoneal or retroperitoneal or pelvic mass lesion or adenopathy or ascites. Bilateral retroperitoneal surgical clips in the region of the common iliac no radha chains. Normal appendix. Numerous diverticula of left and right colon; no CT evidence of diverticulitis. No bowel obstruction or intraperitoneal free air. Small fat-containing umbilical hernia. Degenerative disc disease at L1-2. Diffuse idiopathic skeletal hyperostosis of the thoracic spine. IMPRESSION: 3 mm right ureterovesical junction calculus with mild right hydroureteronephrosis Minimal left nonobstructive nephrolithiasis Extensive diverticulosis of left and right colon; no CT evidence of diverticulitis Status post cholecystectomy Status post hysterectomy Bilateral adrenal adenomas Reviewed, dictated and finalized at Location A. Reviewed, dictated and finalized at location A. IMPRESSION: 3 mm right ureterovesical junction calculus with mild right hydrou reteronephrosis Minimal left nonobstructive nephrolithiasis Extensive diverticulosis of left and right colon; no CT evidence of diverticuli tis Status post cholecystectomy Status post hysterectomy Bilateral adrenal adenomas
[2020-08-11] MEDS: MORPHINE SULFATE (*CRX) 4 MG/ML INJ IV PUSH ×2 (06:51→09:02)
[2020-08-11] MEDS: ONDANSETRON INJ 4 MG/2 ML VIAL IV PUSH (06:51)
[2020-08-11] MEDS: SODIUM CHLORIDE 0.9% IV 1,000 ML 999 ML IV CONT (06:51)
[2020-08-11 06:59] LABS: Basophils Percent Auto 0.3 % (0.2-1.2); Eosinophils Absolute Auto 0.2 K/mm3 (0-0.3); Hematocrit 43.8 % (37.0-47.0); Hemoglobin 14.4 g/dL (12.0-15.0); Immature Granulocyte Absolute 0.02 K/mm3 (0.00-0.031); Immature Granulocyte Percent A 0.3 % (0-0.5); Lymphocytes Absolute Auto 1.89 K/mm3 (0.9-3.2); Mean Corpuscular HGB Conc 32.9 g/dl (32-36); Mean Corpuscular Hemoglobin 30.1 pg (26-34); Mean Corpuscular Volume 91.6 fl (80-100); Mean Platelet Volume 9.9 fl (7.4-10.4); Monocytes Absolute Auto 0.5 K/mm3 (0.1-0.6); Neutrophils Absolute Auto 3.5 K/mm3 (1.3-6.7); Neutrophils Percent Auto 57.4 % (45.5-73.1); Platelet Count Result 275 k/mm3 (150-375); Red Blood Count 4.78 M/mm3 (4.2-5.4); Red Cell Distribution Width 13.4 % (11.5-14.5); White Blood Count 6.1 K/mm3 (4.5-10.0)
[2020-08-11 07:04] LABS: Alanine Aminotransferase 26 U/L (4-35); Albumin Level 4.4 g/dL (3.5-5.1); Alkaline Phosphatase 119 U/L (38-126); Aspartate Amino Transferase 22 U/L (14-36); Bilirubin,Total 0.3 mg/dL (0.2-1.3); Blood Urea Nitrogen 12 mg/dL (7-17); Calcium 9.4 mg/dL (8.4-10.2); Carbon Dioxide 28 mmol/L (22-30); Estimated CRCL calculation 79 ml/min; Estimated Glomerular Filt Rate > 60; Glucose 245 mg/dL (65-105); Lipase 87 U/L (23-300); Potassium 4.1 mmol/L (3.4-5.0); Sodium 139 mmol/L (137-145)
[2020-08-11 07:10] LABS: Anion Gap 5 mmol/L (8-16); Chloride 106 mmol/L (98-107)
--- NOTE | 2020-08-11 07:23 | PC.NURSE ---
Toradol 30mg IVP given per verbal order of ERP
[2020-08-11] MEDS: KETOROLAC 30 MG/ML VIAL (*BKC) (07:24)
--- NOTE | 2020-08-11 07:24 | ED.GENADULT ---
HPI - General Adult General Chief complaint: Abdominal Pain Stated complaint: abd pain Time Seen by Provider: 08/11/20 06:38 Source: patient History of Present Illness HPI narrative: Patient is a 64 y/o female complaining of right lower abdominal pain since 4 hours ago. She describes her pain as aching and rates it as 10/10. Her pain radiates to her right back. There is no alleviating or exacerbating factor. She some nausea, but no vomiting. She has no dysuria or hematuria. Related Data Home Medications Medication Instructions Recorded Confirmed pantoprazole [Protonix] 40 mg PO DAILY 06/18/20 06/18/20 Allergies Allergy/AdvReac Type Severity Reaction Status Date / Time vancomycin Allergy Intermediate Redness of Verified 06/18/20 04:32 Skin aspirin Allergy Unknown Itching Verified 06/18/20 04:32 Review of Systems Constitutional: Constitutional: Denies chills, Denies fever(s), Denies headache(s) and Denies weakness Eyes: Eyes: Denies blurry vision ENT: Denies headache(s) and Denies neck pain Cardiovascular: Cardiovascular: Denies chest pain and Denies dyspnea Respiratory: Respiratory: Denies cough and Denies dyspnea Gastrointestinal: Gastrointestinal: Reports abdominal pain, Denies diarrhea, Reports nausea and Denies vomiting Genitourinary: Genitourinary: Denies hematuria and Denies dysuria Musculoskeletal: Musculoskeletal: Denies back pain and Denies neck pain Neurologic: Denies headache(s) and Denies weakness [facility] Past Medical History Medical History Chondromalacia, right knee Diabetes mellitus Hx SBO H/o partial SBO 04/2019 Hypertension Surgical History Surgical History History of abdominal surgery benign masses removed per patient History of breast lump removal History of hysterectomy History of laparotomy x2 Hx of cholecystectomy Family History Family History Other Cerebrovascular accident Diabetes mellitus Family history of cardiovascular disease Hypertension Social History Social History Social History: Patient states she lives at home alone. She wishes to be a Full Code. Her PCP is ISAIAS Egan Smoking packs per day: 0.1 Smoking cigarettes per day: 2.0 Years smoked: 22 Smoking pack-years: 2.20 Smoking status: Current every day smoker Tobacco type: cigarettes Alcohol intake: never Substance use: never Gender identity (if verbalized by the patient): Female Spiritual care concerns: No Exam Const: General: no acute distress and well developed Orientation/consciousness: oriented to person, oriented to place, oriented to time and patient oriented x3 HENMT: Head: normocephalic Ears: external ears normal General nose exam: Normal external nose present Eyes: General: appearance normal, both eyes and all related structures Conjunctivae: conjunctivae normal Neck: Neck: normal visual inspection and full ROM Chest: Chest palpation & inspection: normal inspection of the chest and no tenderness Resp: Effort & Inspection: normal respiratory effort Auscultation: clear to auscultation bilaterally Cardio: Rate: regular rate Rhythm: regular rhythm GI: GI Palp: No abdominal tenderness and Yes Soft to palpation Skin: General skin exam: normal color and turgor normal Neuro: General: oriented to person, oriented to place, oriented to time and patient oriented x3 Cognition (Neuro): normal cognition Extrem: General: normal to inspection, full ROM and no pedal edema Psych: Appearance: grossly normal Mental Status: mental status grossly normal Affect: normal affect Course Consultations Consultation #1: Discussed with Dr. Henry, who agrees to admit. Date: 08/11/20 Time: 09:28 Consultation #2: Discussed with Dr. Gutiérrez, who agrees to consult. Deep
--- NOTE | 2020-08-11 07:30 | PC.NURSE ---
Patient attempting to give urine sample at this time
--- NOTE | 2020-08-11 07:36 | PC.NURSE ---
Patient to CT at this time.
[2020-08-11 08:16] LABS: Add Urine Microscopic? YES; Appearance Urine Clear (Clear); Bilirubin Urine Negative (Negative); Blood Urine 2+ (Negative); Color Urine Straw (Yellow); Glucose Urine UA 2+ mg/dL (Negative); Ketones Urine Negative (Negative); Leukocyte Esterase Ur Negative LEU/UL (Negative); Nitrate Urine Negative (Negative); Protein Urine Negative (Negative); RBC Urine 21-50 /hpf (0-2); Specific Grav Ur 1.012 (1.001-1.035); Squamous Epithelial Cell Urine Rare /hpf (Few); Urobilinogen Urine Negative mg/dL (<2.0); WBC Urine 0-3 /hpf
--- NOTE | 2020-08-11 10:22 | PM.IMHP ---
H&P: HPI History of Present Illness Date/Time: 08/11/20 10:22 Chief Complaint: Back pain Narrative: Pt is a 64-year-old female with a past medical history of diabetes, pancreatitis, diverticulosis and small bowel obstruction who presented emergency room for right lower quadrant abdominal pain as well as right back pain. Patient states that she started having this pain at 3:00 a.m. this morning and it woke her up out of a sleep. She said it is a constant sharp pain and nothing makes it better or worse. She has had some nausea with this pain but no vomiting. She denies dysuria or hematuria and does not feel like she has ever had this pain before. She has been told in the past that she had a renal stone and that if it moved, she would be in pain and to come in. She says the pain is a 9/10 right now is a little better than when she was admitted but she is still in pretty significant pain. She denies chest pain, shortness of breath, rashes, wounds, diarrhea, constipation or headache. She says that she usually takes her glucose at home and is around 130-180. She takes 3 diabetes pills at home for her diabetes but is unsure of the names. She does not require insulin. 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 Her last colonoscopy was within the last 10 years. No history of gastric ulcer. She is allergic to aspirin which causes her to have a red rash with blisters. She had her 2nd dose of the COVID-19 vaccine over 2 weeks ago. Translating services were utilized during this history and physical due to the patient's primary language being Khmer. Review of Systems Review of Systems: All systems reviewed & are unremarkable except as noted in HPI and below PMFSH Past Medical History Medical History (Updated 08/11/20 @ 11:22 by Tracy Gr PA-C) Bilateral adrenal adenomas Chondromalacia, right knee Diabetes mellitus Diverticulosis has had a colonoscopy in the last 10 years GERD (gastroesophageal reflux disease) HLD (hyperlipidemia) Hx SBO H/o partial SBO 04/2019 Hypertension Surgical History Surgical History (Updated 08/11/20 @ 11:25 by Tracy Gr PA-C) H/O hand surgery right hand after accident History of abdominal surgery benign masses removed per patient History of breast lump removal History of hysterectomy History of laparotomy x2 Hx of cholecystectomy Family History Family History (Updated 08/11/20 @ 11:23 by Tracy Gr PA-C) Mother Diabetes mellitus Father Hypertension Other Cerebrovascular accident Family history of cardiovascular disease Social History Social History (Updated 08/11/20 @ 11:24 by Tracy Gr PA-C) Social History: Pt smokes about 2 cigarettes a day. She does not drink alcohol. She lives at home with her and daughter. She would like to be a full code. If she is unable to make decisions for herself, she would like her daughter, Luisa, to make decisions for her. Her PCP is ISAIAS Egan Smoking packs per day: 0.1 Smoking cigarettes per day: 2.0 Years smoked: 22 Smoking pack-years: 2.20 Smoking status: Current every day smoker Tobacco type: cigarettes Alcohol intake: never Substance use: never Gender identity (if verbalized by the patient): Female Spiritual care concerns: No Meds Home Medications and Allergies Allergies Allergy/AdvReac Type Severity Reaction Status Date / Time vancomycin Allergy Intermediate Redness of Verified 08/11/20 11:22 Skin aspirin Allergy Unknown Itching Verified 08/11/20 11:22 Vital Signs Vital Signs - 24 hr 08/11/20 06:34 08/11/20 07:15 08/11/20 07:51 Temperature 98 F Pulse Rate 72 77 60 Respiratory Rate 22 H 18 Blood Pressure 189/98 H 186/84 H 149/73 H Pulse Oximetry 100 98 100 08/11/20 09:32 08/11/20 09:51 Temperature 98 F Pulse Rate 63 Respiratory Rate Blood Pressure 142/71 H Pulse Oximetry 98 Exam Narrative: Ex
[2020-08-11] MEDS: TAMSULOSIN HCL 0.4 MG CAPSULE PO (10:48)
[2020-08-11] MEDS: SODIUM CHLORIDE 0.9% IV 1,000 ML 125 ML IV CONT (11:16)
[2020-08-11] MEDS: MORPHINE SULFATE (*CRX) 2 MG/ML INJ IV PUSH ×2 (11:27→13:46)
[2020-08-11 11:38] LABS: Glucose Point of Care 189 (65-105)
--- NOTE | 2020-08-11 11:48 | PC.NURSE ---
Pts pharmacy not open today. Will pass on to next shift to call in the morning.
[2020-08-11] MEDS: PANTOPRAZOLE 40 MG TABLET PO (13:02)
--- NOTE | 2020-08-11 14:07 | WPDURCON ---
Assessment and Plan Additional Plan Right UVJ stone. It is 3mm in size and very likely to pass. It is OK for her to eat and drink now. I have started longer acting oral pain medication and added Tylenol every 6 hours for multimodal pain control. I agree with the use of Toradol every 6 hours. The Toradol and oral medications should be given prior to IV narcotics, with the shorter acting IV narcotics reserved for breakthrough pain. Please strain her urine for stone passage. If the stone does not pass, ureteroscopy may be needed tomorrow. I have made her NPO after MN in case surgery is needed tomorrow. Urology Consult Note HPI Date Seen: 08/11/20 Requesting Physician: Sergei Henry MD Primary Care Provider: Sherrie Egan, FINE PATCHER Consult Narrative Narrative: Daphne Guido is a 64 year old female with a right 3mm UVJ stone. I have reviewed the scan and the stone is almost in the bladder. Her pain has not been well controlled so far since admission from the ER. She is not currently have emesis or nausea. She has no fevers or chills. I have reviewed her labs, and her WBC and creatinine are normal. Review of Systems Review of Systems: All systems reviewed & are unremarkable except as noted in HPI and below PMFSH Past Medical History Medical History (Updated 08/11/20 @ 11:22 by Tracy Gr PA-C) Bilateral adrenal adenomas Chondromalacia, right knee Diabetes mellitus Diverticulosis has had a colonoscopy in the last 10 years GERD (gastroesophageal reflux disease) HLD (hyperlipidemia) Hx SBO H/o partial SBO 04/2019 Hypertension Surgical History Surgical History (Updated 08/11/20 @ 11:25 by Tracy Gr PA-C) H/O hand surgery right hand after accident History of abdominal surgery benign masses removed per patient History of breast lump removal History of hysterectomy History of laparotomy x2 Hx of cholecystectomy Family History Family History (Updated 08/11/20 @ 11:23 by Tracy Gr PA-C) Mother Diabetes mellitus Father Hypertension Other Cerebrovascular accident Family history of cardiovascular disease Social History Social History (Updated 08/11/20 @ 11:24 by Tracy Gr PA-C) Social History: Pt smokes about 2 cigarettes a day. She does not drink alcohol. She lives at home with her and daughter. She would like to be a full code. If she is unable to make decisions for herself, she would like her daughter, Luisa, to make decisions for her. Her PCP is ISAIAS Egan Smoking packs per day: 0.1 Smoking cigarettes per day: 2.0 Years smoked: 22 Smoking pack-years: 2.20 Smoking status: Current every day smoker Alcohol intake: never Substance use: never Gender identity (if verbalized by the patient): Female Spiritual care concerns: No Meds Home Medications and Allergies Allergies Allergy/AdvReac Type Severity Reaction Status Date / Time vancomycin Allergy Intermediate Redness of Verified 08/11/20 11:22 Skin aspirin Allergy Unknown Itching Verified 08/11/20 11:22 Vital Signs Vital Signs - 24 hr 08/11/20 06:34 08/11/20 07:15 08/11/20 07:51 Temperature 36.6 C Pulse Rate 72 77 60 Respiratory Rate 22 H 18 Blood Pressure 189/98 H 186/84 H 149/73 H Pulse Oximetry 100 98 100 08/11/20 09:32 08/11/20 09:51 Temperature 36.6 C Pulse Rate 63 Respiratory Rate Blood Pressure 142/71 H Pulse Oximetry 98 Exam Const: General: cooperative and healthy appearing HENMT: Head: normal to inspection Ears: hearing grossly normal bilaterally General nose exam: Normal external nose present Eyes: General: appearance normal, both eyes and all related structures Alignment and Position: alignment normal Neck: Neck: normal visual inspection and full ROM Resp: Effort & Inspection: normal respiratory effort and able to speak in complete sentences Skin: General skin exam: normal color and no rashes or lesions noted Neuro: G
[2020-08-11] MEDS: ACETAMINOPHEN 500 MG TABLET 1000 MG PO ×2 (14:51→19:41)
[2020-08-11 16:40] LABS: Glucose Point of Care 157 (65-105)
[2020-08-11] MEDS: oxyCODONE HCL (*CRX) 5 MG TAB IR PO ×2 (17:04→23:51)
[2020-08-11] MEDS: SODIUM CHLORIDE 0.9% IV 1,000 ML 100 ML IV CONT (19:24)
[2020-08-11 21:27] LABS: Glucose Point of Care 245 (65-105)
[2020-08-12] VITALS (13 sets, daily range): BP systolic 102–167; BP diastolic 52–90; PULSE 60–97; RESP 12–18; TEMP 36.1–36.4; O2SAT 93–100
[2020-08-12] MEDS: ACETAMINOPHEN 500 MG TABLET 1000 MG PO (01:39)
[2020-08-12] MEDS: ONDANSETRON INJ 4 MG/2 ML VIAL IV PUSH ×2 (05:15→11:46)
[2020-08-12] MEDS: oxyCODONE HCL (*CRX) 5 MG TAB IR PO ×3 (05:30→21:01)
[2020-08-12] MEDS: SODIUM CHLORIDE 0.9% IV 1,000 ML 100 ML IV CONT (05:33)
[2020-08-12 06:01] LABS: Basophils Percent Auto 0.5 % (0.2-1.2); Eosinophils Absolute Auto 0.1 K/mm3 (0-0.3); Eosinophils Percent Auto 1.6 % (0-4.4); Hematocrit 39.8 % (37.0-47.0); Immature Granulocyte Absolute 0.01 K/mm3 (0.00-0.031); Immature Granulocyte Percent A 0.3 % (0-0.5); Lymphocytes Absolute Auto 0.84 K/mm3 (0.9-3.2); Lymphocytes Percent Auto 22.7 % (18.3-44.2); Mean Corpuscular HGB Conc 32.7 g/dl (32-36); Mean Corpuscular Hemoglobin 30.3 pg (26-34); Mean Corpuscular Volume 92.8 fl (80-100); Mean Platelet Volume 10.3 fl (7.4-10.4); Monocytes Absolute Auto 0.4 K/mm3 (0.1-0.6); Monocytes Percent Auto 10.3 % (2.6-8.5); Neutrophils Absolute Auto 2.4 K/mm3 (1.3-6.7); Neutrophils Percent Auto 64.6 % (45.5-73.1); Platelet Count Result 220 k/mm3 (150-375); Red Blood Count 4.29 M/mm3 (4.2-5.4); Red Cell Distribution Width 13.6 % (11.5-14.5); White Blood Count 3.7 K/mm3 (4.5-10.0)
[2020-08-12 06:19] LABS: Alanine Aminotransferase 662 U/L (4-35); Albumin Level 3.4 g/dL (3.5-5.1); Alkaline Phosphatase 123 U/L (38-126); Anion Gap 3 mmol/L (8-16); Bilirubin,Total 1.2 mg/dL (0.2-1.3); Blood Urea Nitrogen 10 mg/dL (7-17); Calcium 8.3 mg/dL (8.4-10.2); Carbon Dioxide 27 mmol/L (22-30); Chloride 107 mmol/L (98-107); Estimated CRCL calculation 79 ml/min; Estimated Glomerular Filt Rate > 60; Glucose 212 mg/dL (65-105); Potassium 3.9 mmol/L (3.4-5.0); Sodium 137 mmol/L (137-145)
[2020-08-12 06:22] LABS: Hemoglobin A1C 9.5 % (<5.7)
[2020-08-12 06:34] LABS: Aspartate Amino Transferase 855 U/L (14-36)
[2020-08-12 07:40] LABS: Glucose Point of Care 223 (65-105)
[2020-08-12] MEDS: PANTOPRAZOLE 40 MG TABLET PO (08:22)
[2020-08-12] MEDS: TAMSULOSIN HCL 0.4 MG CAPSULE PO (08:22)
--- NOTE | 2020-08-12 08:51 | WPDUROPN2 ---
Progress Note: A&P Assessment and Plan (1) Hydronephrosis: Code(s): N13.30 - Unspecified hydronephrosis Status: Acute (2) Right ureteral calculus: Code(s): N20.1 - Calculus of ureter Status: Acute Assessment and Plan: Plan to go to the OR today with Dr. Devi: Cystoscopy, right ureteroscopy with stone extraction, possible right stent placement, right retrograde pyelogram, possible holmium laser. Obtain consent. Keep NPO. (3) Right renal stone: Code(s): N20.0 - Calculus of kidney Status: Acute Assessment and Plan: 1-2 punctate stones in the right kidney that are non obstructive. No intervention planned at this time, may pass on their own. Would recommend monitoring yearly. Subjective Subjective Date/Time Seen: 08/12/20 08:51 Spoke with the patient this morning via photo graphics librarian about her persistent right UVJ stone. She continues to be in pain in the RLQ and right flank, feeling nauseated, but denies dysuria or hematuria. She is afebrile. Review of Systems Cardiovascular: Cardiovascular: Denies chest pain Respiratory: Respiratory: Reports no additional respiratory complaints Gastrointestinal: Gastrointestinal: Reports abdominal pain, Reports nausea and Denies vomiting Genitourinary: Genitourinary: Denies hematuria, Denies dysuria, Denies pelvic pain and Reports flank pain Exam Resp: Effort & Inspection: normal respiratory effort Cardio: Rate: regular rate GI: GI Palp: Yes Soft to palpation and Yes Tenderness to palpation present (GI) (RLQ) : General: Yes CVA tenderness on the right Extrem: General: no edema Objective Data Vital Signs Vital Signs: Vital Signs - 24 hr 08/11/20 09:32 08/11/20 09:51 08/11/20 14:00 Temperature 98 F 97.0 F L Pulse Rate 63 77 Respiratory Rate 18 Blood Pressure 142/71 H 164/73 H Pulse Oximetry 98 97 08/11/20 19:40 08/12/20 05:15 Temperature 96.8 F L 97.2 F L Pulse Rate 69 75 Respiratory Rate 12 12 Blood Pressure 140/59 L 147/87 H Pulse Oximetry 97 97 Intake/Output Intake/Output: Intake & Output 08/09/20 08/10/20 08/11/20 08/12/20 23:59 23:59 23:59 23:59 Intake Total 2240 1000 Output Total 1250 400 Balance 990 600 Meds/Results Medications: Active Medications Generic Name Dose Route Start Last Admin Trade Name Clark PRN Reason Stop Dose Admin Dextrose 12.5 gm 08/11/20 10:35 Dextrose 50% 25 Gm/50 Ml Syringe IV PUSH PRN PRN Hypoglycemia Protocol Glucagon 1 mg 08/11/20 10:35 Glucagon For Inj 1 Mg Vial IM PRN PRN Hypoglycemia Protocol Glucose 15 gm 08/11/20 10:35 Glucose Oral Gel 15 Gm Of Glucse In 37.5 Gm Tube PO PRN PRN Hypoglycemia Protocol Hydralazine HCl 10 mg 08/11/20 11:32 Hydralazine Hcl 20 Mg/Ml Vial IV PUSH Q8H PRN Blood Pressure - High Sodium Chloride 1,000 mls @ 100 mls/hr 08/11/20 09:40 08/12/20 05:33 Normal Saline Iv IV CONT 100 mls/hr .Q10H MARY Administration Dextrose 1,000 mls @ 100 mls/hr 08/11/20 10:35 Dextrose 5% 1,000 Ml IVPB PRN PRN Hypoglycemia Protocol Insulin Aspart 2 - 5 units 08/11/20 12:00 08/11/20 16:16 Insulin Aspart (*Bkc) 100 Units/Ml SUB-Q Not Given TIDWM MARY Protocol Ketorolac Tromethamine 15 mg 08/11/20 13:00 Ketorolac 15 Mg/Ml Vial (*Bkc) IV PUSH Q6H PRN Pain Rated 1-6 Morphine Sulfate 2 mg 08/11/20 10:44 08/11/20 13:46 Morphine Sulfate (*Crx) 2 Mg/Ml Inj IV PUSH 2 mg Q2H PRN Administration Pain Rated 7-10 Nicotine 1 patch 08/11/20 11:33 Nicotine (*Pbkc) 7 Mg Patch TRANSDERM QAM PRN smoking cravings Ondansetron HCl 4 mg 08/11/20 11:32 08/12/20 05:15 Ondansetron Inj 4 Mg/2 Ml Vial IV PUSH 4 mg Q6H PRN Administration Nausea And Vomiting Oxycodone HCl 5 mg 08/11/20 14:05 08/12/20 05:30 Oxycodone Hcl (*Crx) 5 Mg Tab Ir PO 5 mg Q4H PRN Administrati
--- NOTE | 2020-08-12 09:18 | PC.NURSE ---
Phone call to [facility] this morning to obtain and verify patient medications. Pharmacy opened at 9am this morning.
[2020-08-12] MEDS: INSULIN ASPART (*BKC) 100 UNITS/ML SUB-Q ×2 (09:25→18:52)
--- NOTE | 2020-08-12 10:29 | PM.IMPN ---
Progress Note: A&P Assessment and Plan (1) Right ureteral calculus: Code(s): N20.1 - Calculus of ureter Status: Acute Assessment and Plan: CT and symptoms consistent with renal stone -likely the cause of her pain as direct palpation to the liver is not eliciting any pain on exam. Will check KUB this morning prior to procedure to ensure the kidney stone is still there. No reports of finding any material while straining urine. -CT 08/11/20 reads 3 mm right ureterovesical junction calculus with mild right hydroureteronephrosis -continue flomax, stain urine -urology consult, plan for cysto later -Continue pain medication (2) Transaminitis: Code(s): R74.01 - Elevation of levels of liver transaminase levels Status: Acute Assessment and Plan: -Liver enzymes were within normal limits on admission -24 hours later they went from normal to AST 855/ALT 662 which is concerning -will stop scheduled acetaminophen and check acetaminophen level ( the patient states she was not taking at home) -ketorolac was given once in the ER but not given thereafter, unlikely the cause but will stop this medication -could be viral? Patient now has leukopenia. Will check CMV and hepatitis panel. COVID seems less likely since she has no symptoms and has recently had the COVID-19 vaccine. -ultrasound shows no abnormality -bilirubin is normal, I do not suspect gallstone obstruction, but will order GGT -consider MRCP or GI consult if it worsens, will recheck at noon -Add lipase and TSH labs (3) Hydronephrosis: Code(s): N13.30 - Unspecified hydronephrosis Status: Acute Assessment and Plan: Due to above -UA not suspicious for UTI -no abx indicated at this time but may change depending on what urology recommends (4) Diabetes mellitus: Code(s): E11.9 - Type 2 diabetes mellitus without complications Status: Acute Assessment and Plan: Last glucose 223 -A1c today was 9.5 -Pt takes metformin, sitagliptin, and Jardiance at home -Will start SSI at this time and adjust according to trends (5) GERD (gastroesophageal reflux disease): Code(s): K21.9 - Gastro-esophageal reflux disease without esophagitis Status: Acute Assessment and Plan: No acute symptoms -Continue protonix. (6) Elevated blood pressure reading: Code(s): R03.0 - Elevated blood-pressure reading, without diagnosis of hypertension Status: Acute Assessment and Plan: Last bp 147/87 -patient stated on admission that she did not have hypertension but her home meds were confirmed today and she does take lisinopril. Is likely elevated more due to pain. Will restart lisinopril. -monitor trends Time Spent With Patient Time with patient: 25 - 35 minutes Subjective Date/time seen: 08/12/20 10:29 Interval history: Pt is a 64-year-old female here for kidney stone. Patient was seen today with daughter at bedside. Translation services were utilized during visit. Patient states that she is feeling a little better compared to yesterday but still in a 7/10 pain. The pain starts in her right upper quadrant and goes down to her right lower quadrant and through her back. They have been straining her urine and have not seen the stone yet. She had some nausea today because she has not eaten. She denies chest pain, shortness of breath, fevers, chills, cough or leg swelling. She states she has no history hepatic disease. She is not drink alcohol or do drugs. Daughter at bedside confirms this. She has not had any viral symptoms in the last week or 2. She takes acetaminophen occasionally at home but has not taken any in the last few days. She says she was tested for hepatitis a few months ago and was negative. Review of Systems Review of Systems: All systems reviewed & are unremarkable except as noted in HPI and below Exam Narrative: Exam Narrative: General: [place]
--- NOTE | 2020-08-12 10:33 | ECG_ITS ---
Measurements Intervals [place] Rate: 61 P: 48 SD: 175 QRS: 22 QRSD: 89 T: 11 QT: 384 QTc: 389 Interpretive Statements SINUS RHYTHM CONSIDER INFERIOR INFARCT, AGE INDETERMINATE NONSPECIFIC T-WAVE ABNORMALITY- ANTERIOR LEADS ABNORMAL ECG Electronically Signed On 08-12-2020 14:29:03 CDT by Maikel Almeida D.O.
--- NOTE | 2020-08-12 11:11 | PC.NURSE ---
Patient to pre-op via hospital stretcher.
[2020-08-12] MEDS: LACTATED RINGERS 1,000 ML 30 ML IV CONT (11:46)
--- NOTE | 2020-08-12 11:57 | WPDANESEPPF ---
Anes - Initial Pre Proc Eval Procedure: Operation Date: 08/12/20 12:30 Proposed Procedures p Cystoscopy, Right Ureteroscopy with Possible Stent Placement(Right) - Kenan Devi MD Date/Time: 08/12/20 11:57 Surgeon: Sergei Henry MD Pre Op Diagnosis: right ureteralithiasis Patient Data Age: 64 Gender: F Height: 1.7 m Weight: 72 kg Last Vital Signs Temp 36.2 C L 08/12/20 05:15 Pulse 75 08/12/20 05:15 Resp 12 08/12/20 05:15 BP 147/87 H 08/12/20 05:15 Pulse Ox 97 08/12/20 05:15 Allergies Allergy/AdvReac Type Severity Reaction Status Date / Time vancomycin Allergy Intermediate Redness of Verified 08/11/20 11:22 Skin aspirin Allergy Unknown Itching Verified 08/11/20 11:22 Home Medications Medication Instructions Recorded Confirmed Type empagliflozin [Jardiance] 10 mg DAILY 08/12/20 08/12/20 History ezetimibe [Zetia] 10 mg PO DAILY 08/12/20 08/12/20 History lisinopril 2.5 mg PO DAILY 08/12/20 08/12/20 History omeprazole 40 mg PO DAILY 08/12/20 08/12/20 History sitagliptin-metformin [Janumet] 1 tablet PO BID 08/12/20 08/12/20 History Laboratory Tests 08/11/20 08/11/20 08/12/20 16:15 21:24 05:17 WBC 3.7 K/mm3 L K/mm3 (4.5-10.0) RBC 4.29 M/mm3 M/mm3 (4.2-5.4) Hgb 13.0 g/dL g/dL (12.0-15.0) Hct 39.8 % % (37.0-47.0) MCV 92.8 fl fl (80-100) MCH 30.3 pg pg (26-34) MCHC 32.7 g/dl g/dl (32-36) RDW 13.6 % % (11.5-14.5) Plt Count 220 k/mm3 k/mm3 (150-375) MPV 10.3 fl fl (7.4-10.4) Immature Gran % (Auto) 0.3 % % (0-0.5) Neut % (Auto) 64.6 % % (45.5-73.1) Lymph % (Auto) 22.7 % % (18.3-44.2) [place] % (Auto) 10.3 % H % (2.6-8.5) Eos % (Auto) 1.6 % % (0-4.4) Baso % (Auto) 0.5 % % (0.2-1.2) Lymph # (Auto) 0.84 K/mm3 L K/mm3 (0.9-3.2) [place] # (Auto) 0.4 K/mm3 K/mm3 (0.1-0.6) Eos # (Auto) 0.1 K/mm3 K/mm3 (0-0.3) Baso # (Auto) 0.0 K/mm3 K/mm3 (0.0-0.1) Abs Immat Gran (auto) 0.01 K/mm3 K/mm3 (0.00-0.031) Absolute Neuts (auto) 2.4 K/mm3 K/mm3 (1.3-6.7) Absolute Nucleated RBC 0.0 K/mm3 K/mm3 (0.0-0.012) Nucleated RBC % 0.0 % % (0.0-0.2) Sodium Potassium Chloride Carbon Dioxide Anion Gap BUN Creatinine Estim Creat Clear Calc Estimated GFR Glucose POC Capillary Glucose 157 mg/dl H mg/dl 245 mg/dl H mg/dl (65-105) (65-105) Hemoglobin A1c Calcium Total Bilirubin AST ALT Alkaline Phosphatase Total Protein Albumin 08/12/20 08/12/20 08/12/20 05:17 05:17 07:37 WBC RBC Hgb Hct MCV MCH MCHC RDW Plt Count MPV Immature Gran % (Auto) Neut % (Auto) Lymph % (Auto) [place] % (Auto) Eos % (Auto) Baso % (Auto) Lymph # (Auto) [place] # (Auto) Eos # (Auto) Baso # (Auto) Abs Immat Gran (auto) Absolute Neuts (auto) Absolute Nucleated RBC Nucleated RBC % Sodium 137 mmol/L mmol/L (137-145) Potassium 3.9 mmol/L mmol/L (3.4-5.0) Chloride 107 mmol/L mmol/L (98-107) Carbon Dioxide 27 mmol/L mmol/L (22-30) Anion Gap 3 mmol/L L mmol/L (8-16) BUN 10 mg/dL mg/dL (7-17) Creatinine 0.60 mg/dL L mg/dL (0.7-1.0) Estim Creat Clear Calc 79 ml/min ml/min Estimated GFR > 60 (59 - ) Glucose 212 mg/dL H mg/dL (65-105)
[2020-08-12 12:15] LABS: Glucose Point of Care 150 (65-105)
--- NOTE | 2020-08-12 12:19 | SUR.PREOP ---
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
--- NOTE | 2020-08-12 12:30 | WPDHPUPDATE1 ---
History and Physical Update Update Date/Time: 08/12/20 12:30 History and Physical has been reviewed, including an updated exam of the patient. There are NO changes in the patient's condition. Risks, benefits, and alternatives have been discussed and questions answered. Patient agrees to proceed with procedure.
[2020-08-12] MEDS: ceFAZolin 2 GM/D5W 50 ML 2 GM/50 ML BAG IVPB (12:38)
--- NOTE | 2020-08-12 12:57 | PM.PROC ---
Procedure Note - Detailed Date of procedure: 08/12/20 Pre-op diagnosis: right ureteralithiasis Post-op diagnosis: same Procedure performed: Cystoscopy, right retrograde pyelogram, right ureteroscopy, stone extraction, stent placement Description of procedure: She was correctly identified. Informed consent obtained. She from the operating room. She was given general anesthesia. She was placed in the dorsal lithotomy position. She was prepped and draped in a sterile fashion. Time-out performed. Cystoscopy revealed a normal-appearing bladder. She had some redness around the right ureteral orifice. I did a retrograde pyelogram on the right to outline ureteral anatomy. I dilated the right ureter with the 8 dilator. I performed ureteroscopy. The stone was encountered. It was basketed and extracted intact. I then placed a 4.8 variable length stent. Proximal coil in the renal pelvis. Distal coil the bladder. The stent was left on a string and taped to her inner thigh. She was awakened and transferred the PACU in stable condition. Implants: Variable length stent Anesthesia: GLMA Surgeon: Kenan Devi MD Estimated blood loss (mL): 0 Drains: Yes (Stent) Packing: No Pathology: yes (Stone) Complications: No immediate complications Condition: stable Disposition: PACU
[2020-08-12] MEDS: LIDOCAINE HCL 2% GEL UROJET 10 ML PKG MUCOUS MEM (13:00)
--- NOTE | 2020-08-12 13:42 | SUR.PHASEI ---
O2 removed at 1327.
[2020-08-12 13:43] LABS: Glucose Point of Care 166 (65-105)
--- NOTE | 2020-08-12 14:21 | SUR.PHASEI ---
RN called to give report and receiving RN is starting blood on another patient at this time.
--- NOTE | 2020-08-12 14:51 | PC.NURSE ---
Patient returned from PACU via hospital stretcher.
[2020-08-12] MEDS: lisinopriL 2.5 MG TABLET PO (15:05)
[2020-08-12 15:52] LABS: INR 0.9
[2020-08-12 15:56] LABS: Lipase 70 U/L (23-300)
[2020-08-12 17:00] LABS: Alanine Aminotransferase 701 U/L (4-35); Albumin Level 4.3 g/dL (3.5-5.1); Alkaline Phosphatase 159 U/L (38-126); Aspartate Amino Transferase 447 U/L (14-36); Bilirubin,Total 0.8 mg/dL (0.2-1.3)
[2020-08-12 17:16] LABS: Thyroid Stimulating Hormone Reflex 0.497 uIU/mL (0.465-4.68)
[2020-08-12 17:38] LABS: Hepatitis B Surface Antigen Negative (Negative)
[2020-08-12 17:44] LABS: HAV RESULT Negative (Negative); Hepatitis B Core IgM Result Negative (Negative)
[2020-08-12 17:55] LABS: Hepatitis C Virus Antibody Negative (Negative)
[2020-08-12 18:52] LABS: Glucose Point of Care 395 (65-105)
[2020-08-12 18:52] LABS: Glucose Point of Care 447 (65-105)
[2020-08-12 18:52] LABS: Glucose Point of Care 414 (65-105)
--- NOTE | 2020-08-12 18:56 | PC.NURSE ---
Update to Dr. Pace about patient blood sugar being 414, then 447. Dr. Pace stated to wait two hours and check again. Checked blood sugar at two hour jake and sugar was 395. 5 units of sliding scale given at this time.
[2020-08-12 23:07] LABS: Glucose Point of Care 236 (65-105)
[2020-08-13] MEDS: oxyCODONE HCL (*CRX) 5 MG TAB IR PO ×4 (04:49→22:16)
[2020-08-13 06:07] LABS: Basophils Percent Auto 0.3 % (0.2-1.2); Eosinophils Absolute Auto 0.1 K/mm3 (0-0.3); Hematocrit 38.7 % (37.0-47.0); Hemoglobin 12.8 g/dL (12.0-15.0); Immature Granulocyte Absolute 0.03 K/mm3 (0.00-0.031); Immature Granulocyte Percent A 0.5 % (0-0.5); Lymphocytes Percent Auto 20.3 % (18.3-44.2); Mean Corpuscular HGB Conc 33.1 g/dl (32-36); Mean Corpuscular Hemoglobin 30.4 pg (26-34); Mean Corpuscular Volume 91.9 fl (80-100); Mean Platelet Volume 10.1 fl (7.4-10.4); Monocytes Absolute Auto 0.4 K/mm3 (0.1-0.6); Monocytes Percent Auto 6.1 % (2.6-8.5); Neutrophils Absolute Auto 4.2 K/mm3 (1.3-6.7); Neutrophils Percent Auto 71.8 % (45.5-73.1); Platelet Count Result 239 k/mm3 (150-375); Red Blood Count 4.21 M/mm3 (4.2-5.4); Red Cell Distribution Width 13.4 % (11.5-14.5); White Blood Count 5.9 K/mm3 (4.5-10.0)
[2020-08-13 06:28] LABS: Alanine Aminotransferase 423 U/L (4-35); Albumin Level 3.7 g/dL (3.5-5.1); Alkaline Phosphatase 117 U/L (38-126); Anion Gap 4 mmol/L (8-16); Aspartate Amino Transferase 139 U/L (14-36); Bilirubin,Total 0.5 mg/dL (0.2-1.3); Blood Urea Nitrogen 10 mg/dL (7-17); Calcium 9.1 mg/dL (8.4-10.2); Carbon Dioxide 29 mmol/L (22-30); Chloride 105 mmol/L (98-107); Estimated CRCL calculation 93 ml/min; Estimated Glomerular Filt Rate > 60; Glucose 195 mg/dL (65-105); Magnesium 1.8 mg/dL (1.6-2.3); Potassium 3.6 mmol/L (3.4-5.0); Sodium 138 mmol/L (137-145)
[2020-08-13 06:37] VITALS: BP 148/69; PULSE 67; RESP 18; TEMP 36.2; O2SAT 98
[2020-08-13 06:50] LABS: CRP 1.3 mg/dL (<1.0)
--- NOTE | 2020-08-13 07:34 | WPDANESPN ---
Anes - Prog Note Post-Op Date/Time: 08/13/20 07:34 Cardiovascular status: normal Respiratory status: normal Airway patency: baseline Mental status: baseline Post-Op hydration status: normal Vital Signs: Last Vital Signs Temp 36.2 C L 08/13/20 06:37 Pulse 67 08/13/20 06:37 Resp 18 08/13/20 06:37 BP 148/69 H 08/13/20 06:37 Pulse Ox 98 08/13/20 06:37 Pain Score (VAS): 0 I/O: Intake & Output 08/12/20 08/12/20 08/13/20 15:59 23:59 07:59 Intake Total 350 790 250 Output Total 925 2100 45 Balance -575 -0064 205 Laboratory Tests 08/13/20 05:41 08/13/20 05:41 08/12/20 08/12/20 08/12/20 07:37 11:50 13:40 WBC RBC Hgb Hct MCV MCH MCHC RDW Plt Count MPV Immature Gran % (Auto) Neut % (Auto) Lymph % (Auto) [place] % (Auto) Eos % (Auto) Baso % (Auto) Lymph # (Auto) [place] # (Auto) Eos # (Auto) Baso # (Auto) Abs Immat Gran (auto) Absolute Neuts (auto) Absolute Nucleated RBC Nucleated RBC % PT INR Sodium Potassium Chloride Carbon Dioxide Anion Gap BUN Creatinine Estim Creat Clear Calc Estimated GFR Glucose POC Capillary Glucose 223 H 150 H 166 H Calcium Magnesium Total Bilirubin Direct Bilirubin GGT AST ALT Alkaline Phosphatase C-Reactive Protein Total Protein Albumin Lipase TSH (Reflex) CMV IgM Ab Hepatitis A IgM Ab Hep Bs Antigen Hep B Core IgM Ab Hepatitis C Ab Screen 08/12/20 08/12/20 08/12/20 15:35 15:35 15:35 WBC RBC Hgb Hct MCV MCH MCHC RDW Plt Count MPV Immature Gran % (Auto) Neut % (Auto) Lymph % (Auto) [place] % (Auto) Eos % (Auto) Baso % (Auto) Lymph # (Auto) [place] # (Auto) Eos # (Auto) Baso # (Auto) Abs Immat Gran (auto) Absolute Neuts (auto) Absolute Nucleated RBC Nucleated RBC % PT INR Sodium Potassium Chloride Carbon Dioxide Anion Gap BUN Creatinine Estim Creat Clear Calc Estimated GFR Glucose POC Capillary Glucose Calcium Magnesium Total Bilirubin Direct Bilirubin GGT Pending AST ALT Alkaline Phosphatase C-Reactive Protein Total Protein Albumin Lipase TSH (Reflex) 0.497 CMV IgM Ab Pending Hepatitis A IgM Ab Hep Bs Antigen Hep B Core IgM Ab Hepatitis C Ab Screen 08/12/20 08/12/20 08/12/20 15:35 15:35 15:35 WBC RBC Hgb Hct MCV MCH MCHC RDW Plt Count MPV Immature Gran % (Auto) Neut % (Auto) Lymph % (Auto) [place] % (Auto) Eos % (Auto) Baso % (Auto) Lymph # (Auto) [place] # (Auto) Eos # (Auto) Baso # (Auto) Abs Immat Gran (auto) Absolute Neuts (auto) Absolute Nucleated RBC Nucleated RBC % PT 13.0 INR 0.9 Sodium Potassium Chloride Carbon Dioxide Anion Gap BUN Creatinine Estim Creat Clear Calc Estimated GFR Glucose POC Capillary Glucose Calcium Magnesium Total Bilirubin Direct Bilirubin GGT AST ALT Alkaline Phosphatase C-Reactive Protein Total Protein Albumin Lipase 70 TSH (Reflex) CMV IgM Ab Hepatitis A IgM Ab Negative Hep Bs Antigen Negative Hep B Core IgM Ab Negative Hepatitis C Ab Screen Negative 08/12/20 08/12/20 08/12/20 15:36 17:15 18:22 WBC RBC Hgb Hct MCV MCH MCHC RDW Plt Count MPV Immature Gran % (Auto) Neut % (Auto) Lymph % (Auto) [place] % (Auto) Eos % (Auto) Baso % (Auto) Lymph # (Auto) [place] # (Auto) Eos # (Auto) Baso # (Auto) Abs Immat Gran (auto) Absolute Neuts (auto) Absolute Nucleated RBC Nucleated RBC % PT INR Sodium Potassium Chloride Carbon Dioxide Anion Gap BUN Cr
[2020-08-13 07:39] LABS: Glucose Point of Care 170 (65-105)
[2020-08-13] MEDS: metFORMIN HCL 500 MG TABLET PO ×2 (09:31→16:58)
[2020-08-13] MEDS: lisinopriL 2.5 MG TABLET PO (09:31)
[2020-08-13] MEDS: PANTOPRAZOLE 40 MG TABLET PO (09:31)
--- NOTE | 2020-08-13 10:00 | PM.IMPN ---
Progress Note: A&P Assessment and Plan (1) Right ureteral calculus: Code(s): N20.1 - Calculus of ureter Status: Acute Assessment and Plan: CT and symptoms consistent with renal stone -likely the cause of her pain as direct palpation to the liver is not eliciting any pain on exam. -CT 08/11/20 reads 3 mm right ureterovesical junction calculus with mild right hydroureteronephrosis -cysto and stent placement 08/12 has improved her pain. -pt continues to having hematuria and dysuria, will add Pyridium -Spoke with urology, they plan to remove stent tomorrow before d/c (2) Transaminitis: Code(s): R74.01 - Elevation of levels of liver transaminase levels Status: Acute Assessment and Plan: -Liver enzymes were within normal limits on admission -24 hours later they went from normal to AST 855/ALT 662 but is now trending down. -acetaminophen? This was discontinued -ketorolac was given once in the ER but not given thereafter, unlikely to be the cause -could be viral? CMV pending, hepatitis negative. COVID seems less likely since she has no symptoms and has recently had the COVID-19 vaccine. -ultrasound shows no abnormality -bilirubin is normal, I do not suspect gallstone obstruction, await GGT -Improving, will check them again tomorrow morning. If they continue to improve, will discharge home. (3) Hydronephrosis: Code(s): N13.30 - Unspecified hydronephrosis Status: Acute Assessment and Plan: Due to above -UA not suspicious for UTI (4) Diabetes mellitus: Code(s): E11.9 - Type 2 diabetes mellitus without complications Status: Acute Assessment and Plan: Last glucose 170 -She had elevated glucose overnight up to 400 -restart metformin and januvia -A1c 9.5 -Pt takes metformin, sitagliptin, and Jardiance at home -Continue SSI (5) GERD (gastroesophageal reflux disease): Code(s): K21.9 - Gastro-esophageal reflux disease without esophagitis Status: Acute Assessment and Plan: No acute symptoms -Continue protonix. (6) Elevated blood pressure reading: Code(s): R03.0 - Elevated blood-pressure reading, without diagnosis of hypertension Status: Acute Assessment and Plan: Last bp 148/69 -patient stated on admission that she did not have hypertension but her home meds were confirmed today and she does take lisinopril. Is likely elevated more due to pain. continue home lisinopril. -monitor trends Subjective Date/time seen: 08/13/20 10:00 Interval history: Pt is a 64-year-old female here for kidney stone. Translation services were utilized during visit. Patient is feeling much better today except she is having hematuria and some burning with urination. her pain has improved but she still has pain to the left flank and LLQ. No pain in the RUQ. She is eating and drinking well She denies chest pain, shortness of breath, fevers, chills, cough or leg swelling. Exam Narrative: Exam Narrative: General: Overweight patient walking around the room in [facility] HEENT: Normocephalic, atraumatic, PERRL, Sclerae anicteric, oral mucosa moist. Neck: Supple, no lymphadenopathy Resp: CTA Heart: RRR with no murmurs Abd: Soft, nondistended. No pain to palpation to the liver. She had some right flank pain to palpation and right lower quadrant pain. Negative Velasquez sign. CVA tenderness. Positive bowel sounds. Skin: Warm and dry Extremities: No swelling, erythema or pain to palpation to the lower extremities Neuro: Alert and Oriented x4 . CN 2-12 intact. No focal neurological deficits. Objective Data Vital Signs Vital Signs: Vital Signs - 24 hr 08/12/20 12:16 08/12/20 13:04 08/12/20 13:17 Temperature 97.6 F 97.2 F L Pulse Rate 71 66 67 Respiratory Rate 16 16 14 Blood Pressure 151/79 H 102/52 L 104/57 L Pulse Oximetry 98 96 96 08/12/20 13:30 08/12/20 13:45 08/12/20 14:00 Temperature Pulse Rate
[2020-08-13 11:45] LABS: Glucose Point of Care 294 (65-105)
[2020-08-13] MEDS: PHENAZOPYRIDINE HCL 100 MG TABLET 200 MG PO ×2 (11:56→16:58)
[2020-08-13] MEDS: polyethylene glycoL 3350 17 GM POWD.PACK PO (11:56)
[2020-08-13] MEDS: INSULIN ASPART (*BKC) 100 UNITS/ML SUB-Q ×3 (11:59→23:56)
[2020-08-13 14:00] VITALS: BP 144/67; PULSE 72; RESP 16; TEMP 35.9; O2SAT 97
--- NOTE | 2020-08-13 15:18 | WPDUROPN2 ---
Progress Note: A&P Assessment and Plan (1) Right ureteral calculus: Code(s): N20.1 - Calculus of ureter Status: Acute Assessment and Plan: Resolved, will remove stent prior to discharge. No further evaluation needed at this time. (2) Right renal stone: Code(s): N20.0 - Calculus of kidney Status: Acute Assessment and Plan: Follow up with us yearly. No further evaluation needed. Subjective Subjective Date/Time Seen: 08/13/20 15:18 POD #1 Cystoscopy, right ureteroscopy with stone extraction, right stent placed, right retrograde pyelogram. Patient is still c/o gross hematuria and pain but it is improved. I spoke with her via video filterer and she understood that we would keep again overnight and remove her stent tomorrow at the bedside, then she could go home. She is asking to be off of work until the , her job is physically demanding and she is in too much pain to do it. Review of Systems Cardiovascular: Cardiovascular: Denies chest pain Respiratory: Respiratory: Reports no additional respiratory complaints Gastrointestinal: Gastrointestinal: Reports abdominal pain, Denies nausea and Denies vomiting Genitourinary: Genitourinary: Reports hematuria, Denies dysuria, Denies flank pain, Denies urinary incontinence, Denies urinary hesitancy and Denies urinary urgency Exam Resp: Effort & Inspection: normal respiratory effort Cardio: Rate: regular rate GI: GI Palp: Yes Soft to palpation and Yes Tenderness to palpation present (GI) (RLQ) : General: Yes CVA tenderness on the right Extrem: General: no edema Objective Data Vital Signs Vital Signs: Vital Signs - 24 hr 08/12/20 19:28 08/13/20 06:37 Temperature 97.6 F 97.2 F L Pulse Rate 97 67 Respiratory Rate 18 18 Blood Pressure 154/90 H 148/69 H Pulse Oximetry 96 98 Intake/Output Intake/Output: Intake & Output 08/10/20 08/11/20 08/12/20 08/13/20 23:59 23:59 23:59 23:59 Intake Total 2240 2140 610 Output Total 1250 3425 195 Balance 990 -1285 415 Meds/Results Medications: Active Medications Generic Name Dose Route Start Last Admin Trade Name Freq PRN Reason Stop Dose Admin Bisacodyl 5 mg 08/13/20 10:09 Bisacodyl 5 Mg Tablet Ec PO QAM PRN Constipation Dextrose 12.5 gm 08/11/20 10:35 Dextrose 50% 25 Gm/50 Ml Syringe IV PUSH PRN PRN Hypoglycemia Protocol Glucagon 1 mg 08/11/20 10:35 Glucagon For Inj 1 Mg Vial IM PRN PRN Hypoglycemia Protocol Glucose 15 gm 08/11/20 10:35 Glucose Oral Gel 15 Gm Of Glucse In 37.5 Gm Tube PO PRN PRN Hypoglycemia Protocol Hydralazine HCl 10 mg 08/11/20 11:32 Hydralazine Hcl 20 Mg/Ml Vial IV PUSH Q8H PRN Blood Pressure - High Dextrose 1,000 mls @ 100 mls/hr 08/11/20 10:35 Dextrose 5% 1,000 Ml IVPB PRN PRN Hypoglycemia Protocol Insulin Aspart 2 - 5 units 08/11/20 12:00 08/13/20 11:59 Insulin Aspart (*Bkc) 100 Units/Ml SUB-Q 3 units TIDWM MARY Administration Protocol Lisinopril 2.5 mg 08/12/20 10:30 08/13/20 09:31 Lisinopril 2.5 Mg Tablet PO 2.5 mg DAILY MARY Administration Metformin HCl 500 mg 08/13/20 08:00 08/13/20 09:31 Metformin Hcl 500 Mg Tablet PO 500 mg BIDWM MARY Administration Morphine Sulfate 2 mg 08/11/20 10:44 08/11/20 13:46 Morphine Sulfate (*Crx) 2 Mg/Ml Inj IV PUSH 2 mg Q2H PRN Administration Pain Rated 7-10 Nicotine 1 patch 08/11/20 11:33 Nicotine (*Pbkc) 7 Mg Patch TRANSDERM QAM PRN smoking cravings Ondansetron HCl 4 mg 08/11/20 11:32 08/12/20 11:46 Ondansetron Inj 4 Mg/2 Ml Vial IV PUSH 4 mg Q6H PRN Administration Nausea And Vomiting Oxybutynin Chloride 5 mg 08/13/20 10:09 Oxybutynin Chloride 5 Mg Tablet PO TID PRN Bladder Spasm Oxycodone HCl 5 mg 08/12/20 10:38 08/13/20 11:12 Oxycodone Hcl (*Crx) 5 Mg Tab Ir PO 5 mg Q4H
[2020-08-13 15:46] VITALS: O2SAT 94
[2020-08-13 17:41] LABS: Glucose Point of Care 275 (65-105)
[2020-08-13 19:17] VITALS: BP 138/62; PULSE 77; RESP 18; TEMP 36.1; O2SAT 97
[2020-08-13 23:08] LABS: Glucose Point of Care 282 (65-105)
[2020-08-14 05:47] LABS: Hematocrit 36.2 % (37.0-47.0); Mean Corpuscular HGB Conc 33.1 g/dl (32-36); Mean Corpuscular Hemoglobin 29.6 pg (26-34); Mean Corpuscular Volume 89.4 fl (80-100); Mean Platelet Volume 9.8 fl (7.4-10.4); Platelet Count Result 234 k/mm3 (150-375); Red Blood Count 4.05 M/mm3 (4.2-5.4); Red Cell Distribution Width 13.5 % (11.5-14.5); White Blood Count 5.5 K/mm3 (4.5-10.0)
[2020-08-14 06:06] LABS: Alanine Aminotransferase 267 U/L (4-35); Albumin Level 3.4 g/dL (3.5-5.1); Alkaline Phosphatase 107 U/L (38-126); Anion Gap 2 mmol/L (8-16); Aspartate Amino Transferase 59 U/L (14-36); Bilirubin,Total 0.4 mg/dL (0.2-1.3); Blood Urea Nitrogen 12 mg/dL (7-17); Calcium 8.7 mg/dL (8.4-10.2); Carbon Dioxide 31 mmol/L (22-30); Chloride 104 mmol/L (98-107); Estimated CRCL calculation 93 ml/min; Estimated Glomerular Filt Rate > 60; Glucose 180 mg/dL (65-105); Potassium 3.6 mmol/L (3.4-5.0); Sodium 137 mmol/L (137-145)
[2020-08-14] MEDS: oxyCODONE HCL (*CRX) 5 MG TAB IR PO ×2 (06:48→11:42)
[2020-08-14 06:57] VITALS: BP 150/69; PULSE 69; RESP 18; TEMP 36.6; O2SAT 97
[2020-08-14 07:31] LABS: Glucose Point of Care 173 (65-105)
[2020-08-14] MEDS: PHENAZOPYRIDINE HCL 100 MG TABLET 200 MG PO ×3 (08:15→17:10)
[2020-08-14] MEDS: metFORMIN HCL 500 MG TABLET PO ×2 (08:15→17:10)
[2020-08-14] MEDS: PANTOPRAZOLE 40 MG TABLET PO (08:16)
[2020-08-14] MEDS: lisinopriL 2.5 MG TABLET PO (08:16)
[2020-08-14] MEDS: polyethylene glycoL 3350 17 GM POWD.PACK PO (08:16)
--- NOTE | 2020-08-14 09:40 | WPDUROPN2 ---
Progress Note: A&P Assessment and Plan (1) Right renal stone: Code(s): N20.0 - Calculus of kidney Status: Acute Assessment and Plan: Follow up with us yearly to monitor stones. No intervention needed at this time. (2) Right ureteral calculus: Code(s): N20.1 - Calculus of ureter Status: Acute Assessment and Plan: Resolved, stent removed today without difficulty. Subjective Subjective Date/Time Seen: 08/14/20 09:40 POD #2 Cystoscopy, right ureteroscopy with stone extraction, right stent placed, right retrograde pyelogram. Patient is still c/o gross hematuria and pain but it is improved. I removed her stent today without difficulty She is asking to be off of work until the , her job is physically demanding and she is in too much pain to do it. Review of Systems Cardiovascular: Cardiovascular: Denies chest pain Respiratory: Respiratory: Reports no additional respiratory complaints Gastrointestinal: Gastrointestinal: Reports abdominal pain, Denies nausea and Denies vomiting Genitourinary: Genitourinary: Reports hematuria, Denies dysuria, Denies pelvic pain and Reports flank pain Exam Resp: Effort & Inspection: normal respiratory effort Cardio: Rate: regular rate GI: GI Palp: Yes Soft to palpation and Yes Tenderness to palpation present (GI) (right lower quadrant) : General: Yes CVA tenderness on the right Other: stent is taped in place on her right thigh Extrem: General: no edema Objective Data Vital Signs Vital Signs: Vital Signs - 24 hr 08/13/20 14:00 08/13/20 15:46 08/13/20 19:17 Temperature 96.7 F L 97 F L Pulse Rate 72 77 Respiratory Rate 16 18 Blood Pressure 144/67 H 138/62 Pulse Oximetry 97 94 97 08/14/20 06:57 Temperature 98 F Pulse Rate 69 Respiratory Rate 18 Blood Pressure 150/69 H Pulse Oximetry 97 Intake/Output Intake/Output: Intake & Output 08/11/20 08/12/20 08/13/20 08/14/20 23:59 23:59 23:59 23:59 Intake Total 2240 2140 1300 790 Output Total 1250 3425 945 700 Balance 990 -1285 355 90 Meds/Results Medications: Active Medications Generic Name Dose Route Start Last Admin Trade Name Freq PRN Reason Stop Dose Admin Bisacodyl 5 mg 08/13/20 10:09 Bisacodyl 5 Mg Tablet Ec PO QAM PRN Constipation Dextrose 12.5 gm 08/11/20 10:35 Dextrose 50% 25 Gm/50 Ml Syringe IV PUSH PRN PRN Hypoglycemia Protocol Glucagon 1 mg 08/11/20 10:35 Glucagon For Inj 1 Mg Vial IM PRN PRN Hypoglycemia Protocol Glucose 15 gm 08/11/20 10:35 Glucose Oral Gel 15 Gm Of Glucse In 37.5 Gm Tube PO PRN PRN Hypoglycemia Protocol Hydralazine HCl 10 mg 08/11/20 11:32 Hydralazine Hcl 20 Mg/Ml Vial IV PUSH Q8H PRN Blood Pressure - High Dextrose 1,000 mls @ 100 mls/hr 08/11/20 10:35 Dextrose 5% 1,000 Ml IVPB PRN PRN Hypoglycemia Protocol Insulin Aspart 2 - 5 units 08/11/20 12:00 08/14/20 07:32 Insulin Aspart (*Bkc) 100 Units/Ml SUB-Q Not Given TIDWM MARY Protocol Lisinopril 2.5 mg 08/12/20 10:30 08/14/20 08:16 Lisinopril 2.5 Mg Tablet PO 2.5 mg DAILY MARY Administration Metformin HCl 500 mg 08/13/20 08:00 08/14/20 08:15 Metformin Hcl 500 Mg Tablet PO 500 mg BIDWM MARY Administration Morphine Sulfate 2 mg 08/11/20 10:44 08/11/20 13:46 Morphine Sulfate (*Crx) 2 Mg/Ml Inj IV PUSH 2 mg Q2H PRN Administration Pain Rated 7-10 Nicotine 1 patch 08/11/20 11:33 Nicotine (*Pbkc) 7 Mg Patch TRANSDERM QAM PRN smoking cravings Ondansetron HCl 4 mg 08/11/20 11:32 08/12/20 11:46 Ondansetron Inj 4 Mg/2 Ml Vial IV PUSH 4 mg Q6H PRN Administration Nausea And Vomiting Oxybutynin Chloride 5 mg 08/13/20 10:09 Oxybutynin Chloride 5 Mg Tablet PO TID PRN Bladder Spasm Oxycodone HCl 5 mg 08/12/20 10:38 08/14/20 06:48 Oxycodone Hcl (*Crx) 5 Mg Tab Ir PO 5
[2020-08-14] MEDS: ACETAMINOPHEN 500 MG TABLET 1000 MG PO (10:18)
[2020-08-14 11:39] LABS: Glucose Point of Care 223 (65-105)
[2020-08-14] MEDS: INSULIN ASPART (*BKC) 100 UNITS/ML SUB-Q ×2 (11:43→17:27)
--- NOTE | 2020-08-14 12:50 | PC.NURSE ---
Patient c/o pain 01/19. Prn pain medication given. With my assessment one hour after administration of pain patient still has c/o 10/19. Message left with Adilene from Urology to inform her of the patient status post stent removal. Patient also c/o nausea. Prn nausea med given at this time also.
[2020-08-14] MEDS: OXYBUTYNIN CHLORIDE 5 MG TABLET PO ×2 (12:53→20:03)
[2020-08-14] MEDS: ONDANSETRON INJ 4 MG/2 ML VIAL IV PUSH (12:53)
[2020-08-14] MEDS: KETOROLAC 30 MG/ML VIAL (*BKC) IV PUSH (14:30)
[2020-08-14] MEDS: diphenhydrAMINE HCl INJ 50 MG/ML VIAL IV PUSH (14:31)
--- NOTE | 2020-08-14 14:40 | PC.NURSE ---
Patient to ultrasound via hospital wheelchair.
--- NOTE | 2020-08-14 14:53 | PC.NURSE ---
Patient returned from ultrasound via hospital wheelchair.
[2020-08-14 15:18] VITALS: BP 149/67; PULSE 79; RESP 16; TEMP 36.2; O2SAT 96
--- NOTE | 2020-08-14 16:36 | PM.IMPN ---
Progress Note: A&P Assessment and Plan (1) Right renal stone: Code(s): N20.0 - Calculus of kidney Status: Acute Assessment and Plan: stent removed this morning by Urology; some hematuria and some burning with urination since. But has urinated since. pain is not being controlled with Oxycodone IR, morphine, or oxybutynin. She has been 7/10 and 1010 since her stent discontinued today. Urology has an US ordered for today for further evaluation. Changed her to PRN Lemitar 5mg and 10mg, urology added Toradol PRN. pain has improved but she still has significant pain to the right flank pain with repositioning/ambulation/coughing. finds it very difficult to move/ambulate or get comfortable to sleep due to her level of pain. Will continue to adjust her pain med and antispasm PRN meds and monitor her for better pain control over night. Patient will need to be off of work until the , due to her pain, need to avoid lifting for recovery, and the level of physical demand of her job. Follow up with Urology yearly to monitor stones. ordered Urine Culture. (2) Right ureteral calculus: Code(s): N20.1 - Calculus of ureter Status: Acute Assessment and Plan: Resolved, stent removed today without difficulty stent removed this morning by Urology; US this afternoon due to her level of persistent pain. FINDINGS:Right kidney: There is normal contour and echogenicity. It measures 11.9 x 6.5 x 5.7 centimeters. There are no focal renal lesions identified. There is no hydronephrosis. Left kidney: There is normal contour and echogenicity. It measures 10.6 x 5.9 x 6.0 centimeters. Artifact at lower pole of left kidney on color flow which could be from nonobstructing small calyceal stone. There is no hydronephrosis. Bladder unremarkable. IMPRESSION: 1. No hydronephrosis. 2. Probable nonobstructing small left nephrolithiasis. Additional Plan Right UVJ stone. 3mm in size passed. oK for her to eat and drink now. oral pain medication:Toradol and oral medications ordered. strain her urine for stone passage. US done today - clear. check U cx. Subjective Date/time seen: 08/14/20 16:36 Interval history: Daphne is a 64-year-old female here for kidney stone. Translation services were utilized during my visit: hvac designer Vicky #[id number]. Patient is feeling slightly better today. She recently had the stent removed this morning by Urology; and has had some hematuria and some burning with urination since. But has urinated since. Her pain is not being controlled with Oxycodone IR, morphine, or oxybutynin. She has been 10/19 and 01/19 since her stent discontinued today. Urology has an US ordered for today for further evaluation. Changed her to PRN Lemitar 5mg and 10mg, urology added Toradol PRN. Her pain has improved but she still has significant pain to the right flank pain. She is eating and drinking, but finds it very difficult to move/ambulate or get comfortable to sleep due to her level of pain. Will continue to adjust her pain med and antispasm PRN meds and monitor her for better pain control over night. She denies chest pain, shortness of breath, fevers, chills, cough or leg swelling. Patient will need to be off of work until the , due to her pain, need to avoid lifting for recovery, and the level of physical demand of her job. Review of Systems Review of Systems: All systems reviewed & are unremarkable except as noted in HPI and below Constitutional: Constitutional: Reports as per HPI, Denies chills, Denies fever(s), Denies headache(s) and Denies weakness Eyes: Eyes: Reports as per HPI and Denies blurry vision ENT: Reports as per HPI, Reports Normal hearing present, Denies headache(s) and Denies neck pain Cardiovascular: Cardiovascular: Reports as per HPI, Denies chest pain and Denies dyspnea Respiratory: Respiratory: Reports as per HPI, Reports no additional respiratory complaints, Denies cough, Reports pain on insp
[2020-08-14 17:18] LABS: Glucose Point of Care 226 (65-105)
[2020-08-14 19:35] VITALS: BP 123/63; PULSE 58; RESP 16; TEMP 36.3; O2SAT 97
[2020-08-14 20:00] VITALS: PULSE 58; RESP 16; O2SAT 97
[2020-08-14 20:43] LABS: Glucose Point of Care 180 (65-105)
[2020-08-15 00:54] LABS: Add Urine Microscopic? YES; Appearance Urine Cloudy (Clear); Bilirubin Urine Negative (Negative); Blood Urine 3+ (Negative); Color Urine Amber (Yellow); Glucose Urine UA 3+ mg/dL (Negative); Ketones Urine Negative (Negative); Leukocyte Esterase Ur Negative LEU/UL (NEGATIVE); Mucus Urine Few /lpf; Nitrate Urine Positive (Negative); Protein Urine 2+ mg/dL (Negative); RBC Urine >75 /hpf (0-2); Specific Grav Ur 1.016 (1.001-1.035); WBC Urine 16-20 /hpf (0-3)
[2020-08-15 05:52] LABS: Hematocrit 38.1 % (37.0-47.0); Hemoglobin 12.5 g/dL (12.0-15.0); Mean Corpuscular HGB Conc 32.8 g/dl (32-36); Mean Corpuscular Hemoglobin 29.4 pg (26-34); Mean Corpuscular Volume 89.6 fl (80-100); Mean Platelet Volume 10.1 fl (7.4-10.4); Platelet Count Result 242 k/mm3 (150-375); Red Blood Count 4.25 M/mm3 (4.2-5.4); Red Cell Distribution Width 13.4 % (11.5-14.5)
[2020-08-15] MEDS: HYDROcodone/acetaminophen (*CRX) 5-325 MG TABLET 1 TAB PO ×2 (05:58→06:56)
[2020-08-15 06:05] LABS: Potassium 3.9 mmol/L (3.4-5.0)
[2020-08-15 06:09] LABS: GGT 152 U/L (3-65)
[2020-08-15 06:10] LABS: Alanine Aminotransferase 240 U/L (4-35); Albumin Level 3.4 g/dL (3.5-5.1); Alkaline Phosphatase 97 U/L (38-126); Anion Gap 3 mmol/L (8-16); Aspartate Amino Transferase 88 U/L (14-36); Bilirubin,Total 0.4 mg/dL (0.2-1.3); Blood Urea Nitrogen 13 mg/dL (7-17); CRP 0.9 mg/dL (<1.0); Calcium 8.9 mg/dL (8.4-10.2); Carbon Dioxide 31 mmol/L (22-30); Chloride 105 mmol/L (98-107); Estimated CRCL calculation 79 ml/min; Estimated Glomerular Filt Rate > 60; Glucose 183 mg/dL (65-105); Sodium 139 mmol/L (137-145)
[2020-08-15] MEDS: OXYBUTYNIN CHLORIDE 5 MG TABLET PO (06:20)
[2020-08-15 06:22] VITALS: BP 149/86; PULSE 62; RESP 18; TEMP 36.3; O2SAT 97
[2020-08-15] MEDS: PANTOPRAZOLE 40 MG TABLET PO (08:25)
[2020-08-15] MEDS: metFORMIN HCL 500 MG TABLET PO ×2 (08:25→16:41)
[2020-08-15] MEDS: polyethylene glycoL 3350 17 GM POWD.PACK PO (08:25)
[2020-08-15] MEDS: lisinopriL 2.5 MG TABLET PO (08:25)
[2020-08-15] MEDS: PHENAZOPYRIDINE HCL 100 MG TABLET 200 MG PO ×3 (08:25→16:41)
[2020-08-15] MEDS: KETOROLAC 30 MG/ML VIAL (*BKC) IV PUSH (08:30)
[2020-08-15] MEDS: diphenhydrAMINE HCl INJ 50 MG/ML VIAL IV PUSH (08:31)
[2020-08-15 08:33] LABS: Glucose Point of Care 156 (65-105)
[2020-08-15 11:49] LABS: Glucose Point of Care 155 (65-105)
[2020-08-15] MEDS: BISACODYL 5 MG TABLET EC PO (12:33)
--- NOTE | 2020-08-15 12:57 | PM.IMPN ---
Progress Note: A&P Assessment and Plan (1) Right ureteral calculus: Code(s): N20.1 - Calculus of ureter Status: Acute Assessment and Plan: Initially the patient was doing better with the stent but now she is doing worse -because of her significant pain, and a repeat CT was ordered which showed persistent mild right hydroureter nephrosis without evidence of obstructing stone or mass. -UA suspicious of UTI, ceftriaxone started -likely the cause of her pain as direct palpation to the liver is not eliciting any pain on exam. -cysto and stent placement 08/12. Stent removed 08/14 -pain medications adjusted -hopefully home tomorrow if the pain improves (2) Transaminitis: Code(s): R74.01 - Elevation of levels of liver transaminase levels Status: Acute Assessment and Plan: -Liver enzymes were within normal limits on admission and then increased suddenly but now is trending down -patient was on scheduled acetaminophen which could be the cause -could be viral? CMV pending, hepatitis negative. COVID seems less likely since she has no symptoms and has recently had the COVID-19 vaccine. -ultrasound shows no abnormality -bilirubin is normal, I do not suspect gallstone obstruction. GGT midly elevated but alk phos normal (3) Hydronephrosis: Code(s): N13.30 - Unspecified hydronephrosis Status: Acute Assessment and Plan: Due to above -abx started (4) Diabetes mellitus: Code(s): E11.9 - Type 2 diabetes mellitus without complications Status: Acute Assessment and Plan: Last glucose 155 -Continue metformin and januvia -A1c 9.5 -Pt takes metformin, sitagliptin, and Jardiance at home -Continue SSI (5) GERD (gastroesophageal reflux disease): Code(s): K21.9 - Gastro-esophageal reflux disease without esophagitis Status: Acute Assessment and Plan: No acute symptoms -Continue protonix. (6) Elevated blood pressure reading: Code(s): R03.0 - Elevated blood-pressure reading, without diagnosis of hypertension Status: Acute Assessment and Plan: Last bp 149/86 -patient stated on admission that she did not have hypertension but her home meds were confirmed today and she does take lisinopril. Is likely elevated more due to pain. continue home lisinopril. -monitor trends Subjective Date/time seen: 08/15/20 12:57 Interval history: Pt is a 64-year-old female here for kidney stone. Translation services were utilized during visit. Patient was seen today and is in more pain. She said she woke up at 1:00 a.m. with significant right flank pain she rated 10/10. She says the pain medication has brought it down to a 7/10 but she is still in a lot of pain. The oxybutynin or the Pyridium seem to be helping. She said she initially felt better but now this is worse and she is very uncomfortable. She has had some nausea and chills when the pain is at its peak. She denies chest pain, shortness of breath, vomiting, right upper quadrant pain, lower extremity edema or cough. No fevers. Exam Narrative: Exam Narrative: General: Overweight patient resting in the chair in obvious this pain but no distress HEENT: Normocephalic, atraumatic, PERRL, Sclerae anicteric, oral mucosa moist. Neck: Supple, no lymphadenopathy Resp: Crackles at the right base Heart: RRR with no murmurs Abd: Soft, nondistended. No pain to palpation to the liver. Significant pain to palpation in the right lower quadrant and CVA tenderness to the right. Negative Velasquez sign. Positive bowel sounds. Skin: Warm and dry Extremities: No swelling, erythema or pain to palpation to the lower extremities Neuro: Alert and Oriented x4 . CN 2-12 intact. No focal neurological deficits. Objective Data Vital Signs Vital Signs: Vital Signs - 24 hr 08/14/20 15:18 08/14/20 19:35 08/14/20 20:00 Temperature 97.1 F L 97.4 F L Pulse Rate 79 58 L 58 L Respiratory
[2020-08-15 14:00] VITALS: BP 153/73; PULSE 65; RESP 18; TEMP 36.7; O2SAT 96
[2020-08-15 16:27] LABS: Glucose Point of Care 134 (65-105)
[2020-08-15 16:55] LABS: CMV IgM Antibody <30.00 AU/mL (<30.00)
[2020-08-15 19:17] VITALS: BP 146/74; PULSE 71; RESP 18; TEMP 36.6; O2SAT 97
[2020-08-15 20:06] LABS: Glucose Point of Care 261 (65-105)
[2020-08-16] MEDS: ONDANSETRON INJ 4 MG/2 ML VIAL IV PUSH (01:17)
[2020-08-16 05:46] LABS: Hematocrit 38.1 % (37.0-47.0); Hemoglobin 12.9 g/dL (12.0-15.0); Mean Corpuscular HGB Conc 33.9 g/dl (32-36); Mean Corpuscular Hemoglobin 30.2 pg (26-34); Mean Corpuscular Volume 89.2 fl (80-100); Platelet Count Result 248 k/mm3 (150-375); Red Blood Count 4.27 M/mm3 (4.2-5.4); White Blood Count 6.3 K/mm3 (4.5-10.0)
[2020-08-16 06:04] VITALS: BP 132/61; PULSE 61; RESP 14; TEMP 36.3; O2SAT 96
[2020-08-16 06:07] LABS: Alanine Aminotransferase 235 U/L (4-35); Albumin Level 3.5 g/dL (3.5-5.1); Alkaline Phosphatase 95 U/L (38-126); Anion Gap 5 mmol/L (8-16); Aspartate Amino Transferase 92 U/L (14-36); Bilirubin,Total 0.4 mg/dL (0.2-1.3); Blood Urea Nitrogen 16 mg/dL (7-17); CRP 0.8 mg/dL (<1.0); Calcium 9.3 mg/dL (8.4-10.2); Carbon Dioxide 29 mmol/L (22-30); Chloride 105 mmol/L (98-107); Estimated CRCL calculation 49 ml/min; Estimated Glomerular Filt Rate 56; Glucose 198 mg/dL (65-105); Sodium 139 mmol/L (137-145)
[2020-08-16 07:43] LABS: Glucose Point of Care 175 (65-105)
[2020-08-16] MEDS: metFORMIN HCL 500 MG TABLET PO (08:33)
[2020-08-16] MEDS: lisinopriL 2.5 MG TABLET PO (08:33)
[2020-08-16] MEDS: PHENAZOPYRIDINE HCL 100 MG TABLET 200 MG PO (08:33)
[2020-08-16] MEDS: polyethylene glycoL 3350 17 GM POWD.PACK PO (08:33)
[2020-08-16] MEDS: PANTOPRAZOLE 40 MG TABLET PO (08:33)
[2020-08-16 08:42] LABS: Potassium 3.8 mmol/L (3.4-5.0)
--- NOTE | 2020-08-16 09:46 | PM.DS ---
DS: Admitting Diagnosis Admitting Diagnosis Admitting Diagnosis: renal stone DS: Discharge Diagnosis Discharge Diagnosis (1) Right ureteral calculus: Code(s): N20.1 - Calculus of ureter Status: Acute Assessment and Plan: Day of discharge pt was in mild pain and ready to go home -Pt had repeat CT day prior to discharge due to pain which showed persistent mild right hydroureteronephrosis without obstructing stone or mass -UA suspicious of UTI, ceftriaxone started while hospitalized and she was sent home on ceftdinir -await urine cx and adjust medications accordingly. -cysto and stent placement 08/12. Stent removed 08/14 (2) Transaminitis: Code(s): R74.01 - Elevation of levels of liver transaminase levels Status: Acute Assessment and Plan: -Liver enzymes were within normal limits on admission and then increased suddenly but now is improving -patient was on scheduled acetaminophen which could be the cause -could be viral? CMV negative. hepatitis negative. COVID seems less likely since she has no symptoms and has recently had the COVID-19 vaccine. -ultrasound shows no abnormality -bilirubin is normal, I do not suspect gallstone obstruction. GGT midly elevated but alk phos normal (3) Hydronephrosis: Code(s): N13.30 - Unspecified hydronephrosis Status: Acute Assessment and Plan: Due to above -abx started (4) Diabetes mellitus: Code(s): E11.9 - Type 2 diabetes mellitus without complications Status: Acute Assessment and Plan: Last glucose 175 -Continue home meds -A1c 9.5 (5) GERD (gastroesophageal reflux disease): Code(s): K21.9 - Gastro-esophageal reflux disease without esophagitis Status: Acute Assessment and Plan: No acute symptoms (6) Elevated blood pressure reading: Code(s): R03.0 - Elevated blood-pressure reading, without diagnosis of hypertension Status: Acute Assessment and Plan: Last bp 132/61 -patient stated on admission that she did not have hypertension but her home meds were confirmed today and she does take lisinopril. Is likely elevated more due to pain. continue home lisinopril. -monitor trends DS: Summary Hospital Course Hospital Course: Patient is a 64-year-old female who presented emergency room on August 11, 2020 for right flank and right lower abdominal pain. Vitals in the ER were temperature 36.6? C, pulse 72, respiratory rate 22, blood pressure 189/98, pulse ox 100 on room air. Initial CBC is within normal limits. BMP was normal with exception of random glucose 245. UA negative for infection. CT of the abdomen pelvis showed:3 mm right ureterovesical junction calculus with mild right hydroureteronephrosis Minimal left nonobstructive nephrolithiasis. Patient was admitted to the hospitalist service and was given pain medication with supportive care. She continued to have increased pain and she was taken for cystoscopy 08/12/20 for a right ureteroscopy with stone extraction and stent placement. for unclear reasons, the patient's AST elevated from 20 on admission to 155 the next day. ALT went from 26 to 662. The patient was on scheduled Tylenol and this was discontinued. It appears this was likely the cause. We did check a right upper quadrant ultrasound which was negative for pathology, CMV was negative, hepatitis panel was negative, and no other medications seem to be the culprit. Nevertheless, the patient's liver enzymes continued to improve each day. She never had any pain in the right upper quadrant. Her INR was normal 0.9. The patient continued to have pain in her right flank but the day of discharge this was improved. Because of her increased pain throughout her stay, a urine culture was redrawn which shows possible infection. We are waiting for the urine culture but have her covered with ceftdinir until this comes back. She understands that she needs a repeat
--- NOTE | 2020-08-16 11:28 | PC.NURSE ---
Christian used when going over discharge instructions, even though pt understands Syriac very well. Maddy #[id number]. Good RX coupon also given to pt for cefdinir.
== END 2020-08-16 11:30 | disposition home or self-care (01) | DRG 661 ==
LOC: ANHED 10:24 → ANH3MED 10:54
PROVIDERS: Emergency Medicine; Nurse Practitioner; Urology; Admitting Provider Family Medicine; Emergency Provider Emergency Medicine; PCP Registered Nurse; Visit Provider Physician Assistant
PROC: 0T768DZ Dilation of Right Ureter with Intraluminal Device, Via Natural or Artificial Opening Endoscopic (ICD-10-PCS; CPT 52352; principal; 2020-08-12 12:30)
DX: N13.2 Hydronephrosis with renal and ureteral calculous obstruction (principal); R31.0 Gross hematuria; R30.0 Dysuria; R74.01 Elevation of levels of liver transaminase levels; E11.9 Type 2 diabetes mellitus without complications; K21.9 Gastro-esophageal reflux disease without esophagitis; R03.0 Elevated blood-pressure reading, without diagnosis of hypertension; F17.210 Nicotine dependence, cigarettes, uncomplicated; E78.5 Hyperlipidemia, unspecified; K57.30 Diverticulosis of large intestine without perforation or abscess without bleeding; J44.9 Chronic obstructive pulmonary disease, unspecified; D35.02 Benign neoplasm of left adrenal gland; D35.01 Benign neoplasm of right adrenal gland; Z79.84 Long term (current) use of oral hypoglycemic drugs; Z79.899 Other long term (current) drug therapy; Z88.3 Allergy status to other anti-infective agents; Z88.6 Allergy status to analgesic agent
CPT/HCPCS: 36415; 74018; 74176; 74420; 76705; 76775; 80048; 80053; 80074; 80076; 81001; 82365; 82948; 82977; 83036; 83690; 83735; 84443; 85025; 85027; 85610; 86140; 86645; 87086; 87088; 88300; 93005; 96361; 96374; 96375; 96376; 99285; A9270; C1769; C2617; G0378; J0690; J0696; J1100; J1200; J1815; J1885; J2250; J2270; J2405; J2704; J3010; J7030; J7120; Q9966

== ENCOUNTER 2020-09-19 23:13 | Emergency (ER) | payer SELFPAY ==
--- NOTE | ~2020-09-19 | CT_ITS ---
EXAMINATION: CT brain wo con, CT cervical spine wo con EXAM DATE: 09/20/2020 03:12 INDICATION: Headache, head injury, intermittent dizziness . TECHNIQUE: Spiral CT of the head was performed without contrast. Axial, coronal and sagittal images were reviewed. Spiral CT of the cervical spine was performed without contrast. Axial images were rev iewed. Coronal and sagittal reformatted images were also reviewed. The dose-length product (DLP) fo r this examination was 605.33 (accession [id number]), 412.58 (accession [id number]) mGy-cm. The exposure was tailored according to patient size, and iterative reconstruction (ASIR) was used as additional dose reduction technique. There is no prior study for comparison. FINDINGS: HEAD CT: There is no acute intraparenchymal hemorrhage. No evidence of intraparenchymal brain mass l esion. No evidence of acute infarction. There is no mass effect or midline shift. There is no obstru ctive hydrocephalus suspected. There are no extra-axial collections. There are no acute calvarial f ractures. The orbits are unremarkable. Soft tissue is unremarkable. The visualized sinuses and mas toid air cells are well aerated. CERVICAL CT: There is no evidence of acute cervical fracture. The odontoid process is intact. Pre- dens space is normal. Prevertebral soft tissue is normal. There are no soft tissue abnormalities id entified. There is no disc space widening or traumatic vertebral body subluxation suspected. There is moderate disc disease C5-7. There is moderate left-sided C4-5 facet arthropathy. A detailed level by level evaluation of spondylosis can be added as addendum if requested. IMPRESSION: 1. No acute intracranial findings or cervical fracture. Reviewed, dictated and finalized at location A. IMPRESSION: 1. No acute intracranial findings or cervical fracture.
--- NOTE | ~2020-09-19 | CT_ITS ---
EXAMINATION: CT lumbar spine wo con EXAM DATE: 09/20/2020 03:12 INDICATION: Back pain. Fell one week ago. TECHNIQUE: Spiral CT of the lumbar spine was performed without contrast. Axial, coronal and sagittal images lumbar spine were reviewed. The dose-length product (DLP) for this examination was 580.92 mG y-cm. The exposure was tailored according to patient size (auto mA exposure control), and iterative reconstruction (ASIR) was used as additional dose reduction technique. Correlation is made to CT abd omen pelvis 08/15/2020. FINDINGS: Compared to last month interval development of acute mild compression fracture superior end plate of L1. The vertebral body heights of lumbar spine otherwise maintained. There is moderate loss of the disc height at L1-2, mild disc disease at the other lumbar levels. There is left-sided L5-S1 m oderate to severe facet arthropathy, otherwise no more than mild to moderate lumbar facet arthropathy . Sacrum, sacroiliac joints appear intact. Mild sigmoid diverticulosis. Probable surgical clips from pelvic lymph node dissection, correlate with history. Punctate left nephrolithiasis. Bilateral adrena l adenomas. Cholecystectomy. IMPRESSION: 1. Acute L1 mild compression fracture. 2. Mild to moderate lumbar spondylosis. 3. Mild sigmoid diverticulosis. 4. Left nephrolithiasis. 5. Adrenal adenomata. Reviewed, dictated and finalized at location A.
[2020-09-19 23:25] VITALS: BP 162/78; PULSE 90; RESP 16; TEMP 36.5; O2SAT 94
[2020-09-20 01:49] VITALS: BP 146/76; PULSE 72; RESP 17; TEMP 36.4; O2SAT 99
[2020-09-20 02:09] VITALS: BP 132/75; PULSE 65; RESP 18; TEMP 36.9; O2SAT 97
--- NOTE | 2020-09-20 02:09 | PC.NURSE ---
Pt presents to ED with complaints of lower back pain that is predominantly to left lower back and occipital lobe pain after falling in [employer] one week ago. Pt has mixing tank operator present at bedside that states pt came in today because pain is progressively worsening. Pain rated 8/10 a this time. Pt states she took 1g tylenol and 600mg ibuprofen at 1400 yesterday 09/19/20 with some relief.Pt noted to be alert and oriented x4 and in no obvious distress. Advised to press call button for assistance.
--- NOTE | 2020-09-20 02:35 | ED.FALL ---
HPI - Fall General Chief Complaint: Fall Stated Complaint: fall at [employer]/ headache back pain Time Seen by Provider: 09/20/20 01:52 Source: patient, family and RN notes reviewed Limitations: language barrier (kyrgyz speaking) History of Present Illness HPI Narrative: This is a 64 year old female who presents for evaluation of back pain and headache s/p fall. Patient fell 1 week ago at [facility]. She slipped backwards and she hit the back of her head. She denies LOC but reports dizziness. She has intermittent posterior headache with blurred vision. She denies vomiting. She also reports low back pain . She denies leg weakness, numbness or tingling. She took Tylenol at 2pm yesterday. She states she was not evaluated for her fall last week when the accident happened. Related Data Home Medications Medication Instructions Recorded Confirmed Janumet 1 tablet PO BID 08/12/20 08/12/20 Jardiance 10 mg DAILY 08/12/20 08/12/20 ezetimibe [Zetia] 10 mg PO DAILY 08/12/20 08/12/20 lisinopril 2.5 mg PO DAILY 08/12/20 08/12/20 omeprazole 40 mg PO DAILY 08/12/20 08/12/20 Allergies Allergy/AdvReac Type Severity Reaction Status Date / Time vancomycin Allergy Intermediate Redness of Verified 08/11/20 11:22 Skin aspirin Allergy Unknown Itching Verified 08/11/20 11:22 Review of Systems Review of Systems: All systems reviewed & are unremarkable except as noted in HPI and below PMFSH Past Medical History Medical History Bilateral adrenal adenomas Chondromalacia, right knee Diabetes mellitus Diverticulosis has had a colonoscopy in the last 10 years GERD (gastroesophageal reflux disease) HLD (hyperlipidemia) Hx SBO H/o partial SBO 04/2019 Hypertension Surgical History Surgical History H/O hand surgery right hand after accident History of abdominal surgery benign masses removed per patient History of breast lump removal History of hysterectomy History of laparotomy x2 Hx of cholecystectomy Family History Family History (Updated 08/11/20 @ 11:23 by Tracy Gr PA-C) Mother Diabetes mellitus Father Hypertension Other Cerebrovascular accident Family history of cardiovascular disease Social History Social History (Updated 08/11/20 @ 11:24 by Tracy Gr PA-C) Social History: Pt smokes about 2 cigarettes a day. She does not drink alcohol. She lives at home with her and daughter. She would like to be a full code. If she is unable to make decisions for herself, she would like her daughter, Luisa, to make decisions for her. Her PCP is ISAIAS Egan Smoking packs per day: 0.1 Smoking cigarettes per day: 2.0 Years smoked: 22 Smoking pack-years: 2.20 Smoking status: Current every day smoker Alcohol intake: never Substance use: never Gender identity (if verbalized by the patient): Female Spiritual care concerns: No Exam Const: General: alert Orientation/consciousness: patient oriented x3 HENMT: Head: normocephalic and scalp tenderness (posterior scalp tenderness) Face and sinus: face symmetric Eyes: EOM: EOMs intact bilaterally Resp: Effort & Inspection: normal respiratory effort and no retractions Auscultation: clear to auscultation bilaterally Cardio: Rate: regular rate Rhythm: regular rhythm Heart sounds: no murmurs GI: GI Palp: Yes Soft to palpation, No Tenderness to palpation present (GI) and No Guarding due to palpation present (GI) Back/Spine/Pelvis: Thoracic/Lumbar Spine: pain with thoraco-lumbar ROM Neuro: General: patient oriented x3, moves all extremities and CN's II-XI intact bilaterally Extrem: Other: 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 I s
[2020-09-20] MEDS: ACETAMINOPHEN 500 MG TABLET 1000 MG PO (02:53)
[2020-09-20] MEDS: CYCLOBENZAPRINE HCL 10 MG TABLET PO (02:54)
--- NOTE | 2020-09-20 02:57 | PC.NURSE ---
Pt to radiology via cart.
--- NOTE | 2020-09-20 03:14 | PC.NURSE ---
Pt returned from radiology.
--- NOTE | 2020-09-20 03:45 | PC.NURSE ---
Pt states pain has improved and is now on cart sleeping. Pain rated 6/10 at this time. vitals are stable and pt in no obvious distress.
[2020-09-20 05:04] VITALS: BP 145/69; PULSE 69; RESP 16; TEMP 36.7; O2SAT 98
[2020-09-20 05:58] VITALS: BP 145/69; PULSE 69; RESP 16; TEMP 36.7; O2SAT 98
== END 2020-09-20 05:11 | disposition home or self-care (01) ==
PROVIDERS: Emergency Provider General Practice; PCP Registered Nurse
DX: S32.018A Other fracture of first lumbar vertebra, initial encounter for closed fracture (principal); S09.90XA Unspecified injury of head, initial encounter; E11.9 Type 2 diabetes mellitus without complications; Z79.899 Other long term (current) drug therapy; E78.5 Hyperlipidemia, unspecified; K21.9 Gastro-esophageal reflux disease without esophagitis; I10 Essential (primary) hypertension; F17.210 Nicotine dependence, cigarettes, uncomplicated; K57.90 Diverticulosis of intestine, part unspecified, without perforation or abscess without bleeding; M47.816 Spondylosis without myelopathy or radiculopathy, lumbar region; D35.02 Benign neoplasm of left adrenal gland; D35.01 Benign neoplasm of right adrenal gland; N20.0 Calculus of kidney; W01.0XXA Fall on same level from slipping, tripping and stumbling without subsequent striking against object, initial encounter
CPT/HCPCS: 70450; 72125; 72131; 99284; A9270

== ENCOUNTER 2021-08-11 13:26 | Emergency (ER) | payer OTHER, SELFPAY ==
[2021-08-11] VITALS (7 sets, daily range): BP systolic 113–176; BP diastolic 76–101; PULSE 84; RESP 19; TEMP 36.2; O2SAT 96–100
--- NOTE | ~2021-08-11 | CT_ITS ---
EXAMINATION: CT abdomen pelvis wo con DATE: 08/11/2021 18:03 INDICATION: left flank pain, hsx of stone TECHNIQUE: Computed tomography (CT) of the abdomen and pelvis was performed without intravenous contr ast. Automated exposure control and iterative reconstruction technique were employed. The dose-length product was 222.77 mGy-cm. COMPARISON: 08/15/20 FINDINGS: Lower thorax: Bibasilar scar/atelectasis. Coronary artery calcifications. Liver: Normal. Biliary/Gallbladder: Gallbladder is absent. No bile duct dilation. Spleen: Normal. Pancreas: No mass or duct dilation. Adrenals:Bilateral adrenal adenomas. Kidneys: No mass or hydronephrosis. Punctate nonobstructive calcifications in the left mid and lower pole. GI tract: No small or large bowel dilation. Normal appendix. Diverticulosis without evidence of diver ticulitis. Mesentery/Peritoneum: No ascites, mass, or free air. Retroperitoneum: No mass. Common and external iliac surgical clips. Pelvis: Uterus is surgically absent. Otherwise the pelvic organs are within normal limits. Bones/Soft Tissues: Soft tissues and body wall unremarkable. Mild superior endplate deformity of L1, new since the prior study. Additional Findings: None. IMPRESSION: Mild L1 superior endplate deformity, may represent an acute versus chronic compression fracture, [place] with symptoms and point tenderness. No other acute or potentially acute abdominopelvic process detected. Reviewed, dictated and finalized at location K. IMPRESSION: Mild L1 superior endplate deformity, may represent an acute versus chronic comp ression fracture, correlate with symptoms and point tenderness. No other acute or potentially acute abdominopelvic process detected.
[2021-08-11 14:28] LABS: Basophils Percent Auto 0.4 % (0.2-1.2); Eosinophils Percent Auto 0.4 % (0-4.4); Hematocrit 47.4 % (37.0-47.0); Hemoglobin 15.2 g/dL (12.0-15.0); Immature Granulocyte Absolute 0.05 K/mm3 (0.00-0.031); Immature Granulocyte Percent A 0.5 % (0-0.5); Lymphocytes Absolute Auto 1.68 K/mm3 (0.9-3.2); Lymphocytes Percent Auto 15.7 % (18.3-44.2); Mean Corpuscular HGB Conc 32.1 g/dl (32-36); Mean Corpuscular Hemoglobin 29.7 pg (26-34); Mean Corpuscular Volume 92.6 fl (80-100); Mean Platelet Volume 9.7 fl (7.4-10.4); Monocytes Absolute Auto 0.5 K/mm3 (0.1-0.6); Monocytes Percent Auto 4.9 % (2.6-8.5); Neutrophils Absolute Auto 8.4 K/mm3 (1.3-6.7); Neutrophils Percent Auto 78.1 % (45.5-73.1); Platelet Count Result 290 k/mm3 (150-375); Red Blood Count 5.12 M/mm3 (4.2-5.4); Red Cell Distribution Width 13.8 % (11.5-14.5); White Blood Count 10.7 K/mm3 (4.5-10.0)
[2021-08-11 14:36] LABS: Appearance Urine Clear (Clear); Bilirubin Urine Negative (Negative); Blood Urine Trace-lysed (Negative); Color Urine Yellow (Yellow); Glucose Urine UA 3+ mg/dL (Negative); Ketones Urine Trace mg/dL (Negative); Leukocyte Esterase Ur Negative LEU/UL (Negative); Nitrate Urine Negative (Negative); Protein Urine Negative (Negative); Urobilinogen Urine 0.2 mg/dL (<2.0)
[2021-08-11 14:40] LABS: Bacteria Urine Trace /hpf; Mucus Urine Rare /lpf; Squamous Epithelial Cell Urine Occasional /hpf (Few); WBC Urine 0-3 /hpf
[2021-08-11 14:41] LABS: Add Urine Microscopic? YES
[2021-08-11 14:52] LABS: Alanine Aminotransferase 17 U/L (4-35); Alkaline Phosphatase 101 U/L (38-126); Aspartate Amino Transferase 23 U/L (14-36); Bilirubin,Total 0.2 mg/dL (0.2-1.3); Blood Urea Nitrogen 21 mg/dL (7-17); Calcium 9.6 mg/dL (8.4-10.2); Carbon Dioxide 26 mmol/L (22-30); Estimated CRCL calculation 72 ml/min; Estimated Glomerular Filt Rate > 60; Glucose 156 mg/dL (65-110); Lipase 60 U/L (23-300)
[2021-08-11 14:57] LABS: Anion Gap 10 mmol/L (8-16); Chloride 103 mmol/L (98-107); Sodium 139 mmol/L (137-145)
--- NOTE | 2021-08-11 17:51 | ED.ABDPAIN ---
HPI - Abdominal Pain General Chief Complaint: Abdominal Pain Stated Complaint: abd pain Time Seen by Provider: 08/11/21 17:01 Source: patient and RN notes reviewed Mode of arrival: ambulatory Limitations: language barrier History of Present Illness HPI narrative: 65-year-old female with history of kidney stones presenting to the emerge department for evaluation of left flank pain that radiates around to her left lower abdomen. Patient states that the pain started this morning at 8 AM while she was sweeping the floor. Patient does describe associated nausea without vomiting. Patient does have a prior history of ureteral calculi and her most recent lithotripsy was performed at [facility] approximately 3 years ago. Patient does have a prior history of a cholecystectomy. Patient is [place]-speaking and the translating iPad was used. Related Data Home Medications Medication Instructions Recorded Confirmed Janumet 1 tablet PO BID 08/12/20 01/16/21 Jardiance 10 mg DAILY 08/12/20 01/16/21 ezetimibe [Zetia] 10 mg PO DAILY 08/12/20 01/16/21 lisinopril 2.5 mg PO DAILY 08/12/20 01/16/21 omeprazole 40 mg PO DAILY 08/12/20 01/16/21 Allergies Allergy/AdvReac Type Severity Reaction Status Date / Time vancomycin Allergy Intermediate Redness of Verified 01/16/21 10:53 Skin aspirin Allergy Unknown Itching Verified 01/16/21 10:53 Review of Systems Review of Systems: CONSTITUTIONAL: Denies fever, chills, or sweats. EYES: Denies visual changes, redness, or discharge. ENT: Denies rhinorrhea, congestion, sore throat, or otalgia. CARDIOVASCULAR: Denies chest pain, palpitations, or edema. RESPIRATORY: Denies cough or dyspnea. GASTROINTESTINAL: See HPI GENITOURINARY: Denies dysuria or hematuria. SKIN: Denies rash or itching. MUSCULOSKELETAL: Denies back pain, joint pain, or myalgia. NEUROLOGIC: Denies headache, numbness, or weakness. [facility] Past Medical History Medical History Bilateral adrenal adenomas Chondromalacia, right knee Diabetes mellitus Diverticulosis has had a colonoscopy in the last 10 years GERD (gastroesophageal reflux disease) HLD (hyperlipidemia) Hx SBO H/o partial SBO 04/2019 Hypertension Surgical History Surgical History H/O hand surgery right hand after accident History of abdominal surgery benign masses removed per patient History of breast lump removal History of hysterectomy History of laparotomy x2 Hx of cholecystectomy Family History Family History Mother Diabetes mellitus Father Hypertension Other Cerebrovascular accident Family history of cardiovascular disease Social History Social History Social History: Pt smokes about 2 cigarettes a day. She does not drink alcohol. She lives at home with her and daughter. She would like to be a full code. If she is unable to make decisions for herself, she would like her daughter, Luisa, to make decisions for her. Her PCP is ISAIAS Egan Smoking packs per day: 0.1 Smoking cigarettes per day: 2.0 Years smoked: 22 Smoking pack-years: 2.20 Smoking status: Current every day smoker Alcohol intake: never Substance use: never Gender identity (if verbalized by the patient): Female Spiritual care concerns: No Exam Narrative: APPEARANCE: Well appearing, no pain, no distress, well-nourished. HEAD: normocephalic, atraumatic. EYES: PERRLA/EOMI, conjunctivae clear. NECK: Supple. No adenopathy, no masses. RESPIRATORY: Airway patent, respirations nonlabored. Clear to auscultation bilaterally, no rales, rhonchi, wheezing. CARDIOVASCULAR: Regular rate and rhythm without murmurs rubs or gallops. ABDOMINAL: Mild left CVA tenderness to palpation. Patient does have left upper quadrant tenderness
[2021-08-11] MEDS: HYDROmorphone HCL INJ (*CRX) 1 MG/ML SYR IV PUSH (18:12)
[2021-08-11] MEDS: ONDANSETRON INJ 4 MG/2 ML VIAL IV PUSH (18:13)
[2021-08-11 18:31] LABS: Lactic Acid Reflex 0.8 mmol/L (0.7-2.0)
== END 2021-08-11 19:20 | disposition home or self-care (01) ==
PROVIDERS: Emergency Provider Emergency Medicine; PCP Registered Nurse
DX: R10.9 Unspecified abdominal pain (principal); E11.9 Type 2 diabetes mellitus without complications; K21.9 Gastro-esophageal reflux disease without esophagitis; E78.5 Hyperlipidemia, unspecified; I10 Essential (primary) hypertension; Z87.442 Personal history of urinary calculi; F17.210 Nicotine dependence, cigarettes, uncomplicated; Z79.84 Long term (current) use of oral hypoglycemic drugs
CPT/HCPCS: 36415; 74176; 80053; 81001; 83605; 83690; 85025; 96374; 96375; 99284; J1170; J2405

== ENCOUNTER 2021-10-07 23:03 | Emergency (ER) | payer OTHER, SELFPAY ==
--- NOTE | ~2021-10-07 | XR_ITS ---
EXAMINATION: XR foot LT min 3V DATE: 10/08/2021 00:41 INDICATION: Diabetic with left foot pain, swelling and erythema after stepping on an object. TECHNIQUE: Dorsoplantar, two oblique and lateral views of the left foot were obtained. COMPARISON: None. FINDINGS: Bone alignment is normal. Bipartite first metatarsal tibial sesamoid with smooth corticated margins. No acute fracture. Mild polyarticular osteoarthritis at the first metatarsophalangeal and multiple ta rsometatarsal and interphalangeal joints. Small plantar calcaneal spur. No cortical erosions or perio steal reaction to suggest osteomyelitis. No radiopaque foreign bodies. IMPRESSION: 1. Mild polyarticular osteoarthritis in the left mid and forefoot. No acute osseous abnormality or ra diopaque foreign bodies. Reviewed, dictated and finalized at location A. IMPRESSION: 1. Mild polyarticular osteoarthritis in the left mid and forefoot. No acute oss eous abnormality or radiopaque foreign bodies.
[2021-10-08 00:11] VITALS: BP 162/75; PULSE 78; RESP 16; TEMP 36.3; O2SAT 98
--- NOTE | 2021-10-08 01:21 | ED.GENADULT ---
HPI - General Adult General Chief complaint: Extremity Injury, Lower Stated complaint: left foot pain Time Seen by Provider: 10/08/21 01:01 History of Present Illness HPI narrative: 65-year-old female presented to the emergency department evaluation of left foot pain. Patient states that she began having the left foot pain approximately 4 days ago. Patient is unsure if she had any incident of injury. Patient denies any other associated pain. Patient has no prior history of gout. Patient computer was used since patient is primarily French-speaking. Related Data Home Medications Medication Instructions Recorded Confirmed empagliflozin 10 mg tablet 10 mg DAILY 08/12/20 01/16/21 (Jardiance) ezetimibe 10 mg tablet (Zetia) 10 mg PO DAILY 08/12/20 01/16/21 lisinopril 2.5 mg tablet 2.5 mg PO DAILY 08/12/20 01/16/21 omeprazole 40 mg capsule,delayed 40 mg PO DAILY 08/12/20 01/16/21 release sitagliptin 50 mg-metformin 500 mg 1 tablet PO BID 08/12/20 01/16/21 tablet (Janumet) Allergies Allergy/AdvReac Type Severity Reaction Status Date / Time vancomycin Allergy Intermediate Redness of Verified 01/16/21 10:53 Skin aspirin Allergy Unknown Itching Verified 01/16/21 10:53 Review of Systems Review of Systems: CONSTITUTIONAL: Denies fever, chills, or sweats. EYES: Denies visual changes, redness, or discharge. ENT: Denies rhinorrhea, congestion, sore throat, or otalgia. CARDIOVASCULAR: Denies chest pain, palpitations, or edema. RESPIRATORY: Denies cough or dyspnea. GASTROINTESTINAL: Denies abdominal pain, nausea, vomiting, or diarrhea. GENITOURINARY: Denies dysuria or hematuria. SKIN: Denies rash or itching. MUSCULOSKELETAL: Foot pain NEUROLOGIC: Denies headache, numbness, or weakness. [facility] Past Medical History Medical History Bilateral adrenal adenomas Chondromalacia, right knee Diabetes mellitus Diverticulosis has had a colonoscopy in the last 10 years GERD (gastroesophageal reflux disease) HLD (hyperlipidemia) Hx SBO H/o partial SBO 04/2019 Hypertension Surgical History Surgical History H/O hand surgery right hand after accident History of abdominal surgery benign masses removed per patient History of breast lump removal History of hysterectomy History of laparotomy x2 Hx of cholecystectomy Family History Family History Mother Diabetes mellitus Father Hypertension Other Cerebrovascular accident Family history of cardiovascular disease Social History Social History Social History: Pt smokes about 2 cigarettes a day. She does not drink alcohol. She lives at home with her and daughter. She would like to be a full code. If she is unable to make decisions for herself, she would like her daughter, Luisa, to make decisions for her. Her PCP is ISAIAS Egan Smoking packs per day: 0.1 Smoking cigarettes per day: 2.0 Years smoked: 22 Smoking pack-years: 2.20 Smoking status: Current every day smoker Alcohol intake: never Substance use: never Gender identity (if verbalized by the patient): Female Spiritual care concerns: No Exam Narrative: APPEARANCE: Well appearing, no pain, no distress, well-nourished. HEAD: normocephalic, atraumatic. EYES: PERRLA/EOMI, conjunctivae clear. NECK: Supple. No adenopathy, no masses. RESPIRATORY: Airway patent, respirations nonlabored. Clear to auscultation bilaterally, no rales, rhonchi, wheezing. CARDIOVASCULAR: Regular rate and rhythm without murmurs rubs or gallops. ABDOMINAL: Soft, nontender, nondistended, normal bowel sounds MUSCULOSKELETAL: Tenderness to ball of great toe of left foot NEURO: Alert. Cranial nerves II through XII intact. Good gait. Good coordination SKIN: Warm, dry. Normal Color Co
[2021-10-08 01:50] VITALS: BP 153/83; PULSE 70; RESP 18; O2SAT 96
[2021-10-08] MEDS: IBUPROFEN 600 MG TABLET PO (01:53)
== END 2021-10-08 02:02 | disposition home or self-care (01) ==
PROVIDERS: Emergency Provider Emergency Medicine; PCP Registered Nurse
DX: S92.812A Other fracture of left foot, initial encounter for closed fracture (principal); E11.9 Type 2 diabetes mellitus without complications; K21.9 Gastro-esophageal reflux disease without esophagitis; E78.5 Hyperlipidemia, unspecified; I10 Essential (primary) hypertension; F17.210 Nicotine dependence, cigarettes, uncomplicated; Z79.84 Long term (current) use of oral hypoglycemic drugs; X58.XXXA Exposure to other specified factors, initial encounter
CPT/HCPCS: 73630; 99283; 99284; A9270

== ENCOUNTER 2022-01-05 13:48 | Emergency (ER) | payer MEDICARE, MEDICAID, SELFPAY ==
[2022-01-05] VITALS (21 sets, daily range): BP systolic 132–189; BP diastolic 63–84; PULSE 56–86; RESP 11–18; TEMP 36.3; O2SAT 99–100
--- NOTE | ~2022-01-05 | XR_ITS ---
EXAMINATION: XR chest 2V DATE: 01/05/2022 14:53 INDICATION: Left chest pain. TECHNIQUE: Frontal and lateral views of the chest were obtained. COMPARISON: CT abdomen and pelvis 08/11/2021 FINDINGS: There is mild atelectasis at the lung bases. No pleural effusion or pneumothorax. The heart size is normal. IMPRESSION: 1. Mild atelectasis at the lung bases. Reviewed, dictated and finalized at location A.
--- NOTE | 2022-01-05 13:53 | ECG_ITS ---
Measurements Intervals [place] Rate: 78 P: 42 W[place]: 159 QRS: 36 QRSD: 92 T: 42 QT: 355 QTc: 406 Interpretive Statements SINUS RHYTHM NORMAL ECG COMPARED TO ECG 08/12/2020 11:02:23 NO SIGNIFICANT CHANGES Electronically Signed On 01-05-2022 15:51:13 CDT by Maikel Almeida D.O.
[2022-01-05 14:10] LABS: Basophils Percent Auto 0.5 % (0.2-1.2); Eosinophils Absolute Auto 0.1 K/mm3 (0-0.3); Eosinophils Percent Auto 1.1 % (0-4.4); Hematocrit 42.5 % (37.0-47.0); Hemoglobin 13.8 g/dL (12.0-15.0); Immature Granulocyte Absolute 0.02 K/mm3 (0.00-0.031); Immature Granulocyte Percent A 0.3 % (0-0.5); Lymphocytes Absolute Auto 1.74 K/mm3 (0.9-3.2); Lymphocytes Percent Auto 22.9 % (18.3-44.2); Mean Corpuscular HGB Conc 32.5 g/dl (32-36); Mean Corpuscular Hemoglobin 30.1 pg (26-34); Mean Corpuscular Volume 92.6 fl (80-100); Mean Platelet Volume 9.8 fl (7.4-10.4); Monocytes Absolute Auto 0.5 K/mm3 (0.1-0.6); Monocytes Percent Auto 6.6 % (2.6-8.5); Neutrophils Absolute Auto 5.2 K/mm3 (1.3-6.7); Neutrophils Percent Auto 68.6 % (45.5-73.1); Platelet Count Result 261 k/mm3 (150-375); Red Blood Count 4.59 M/mm3 (4.2-5.4); Red Cell Distribution Width 13.9 % (11.5-14.5); White Blood Count 7.6 K/mm3 (4.5-10.0)
[2022-01-05 14:19] LABS: Prothrombin Time 12.9 Seconds (11.1-14.7)
[2022-01-05 14:20] LABS: Partial Thromboplastin Time 26.1 SECONDS (22.3-36.8)
[2022-01-05 14:23] LABS: Alanine Aminotransferase 16 U/L (6-35); Albumin Level 4.7 g/dL (3.5-5.1); Alkaline Phosphatase 83 U/L (38-126); Anion Gap 14 mmol/L (8-16); Aspartate Amino Transferase 18 U/L (14-36); Bilirubin,Total 0.2 mg/dL (0.2-1.3); Blood Urea Nitrogen 24 mg/dL (7-17); Calcium 9.3 mg/dL (8.4-10.2); Carbon Dioxide 25 mmol/L (22-30); Chloride 104 mmol/L (98-107); Estimated CRCL calculation 47 ml/min; Estimated Glomerular Filt Rate > 60; Glucose 105 mg/dL (65-110); Lipase 71 U/L (23-300); Potassium 3.6 mmol/L (3.4-5.0); Sodium 143 mmol/L (137-145)
[2022-01-05 14:35] LABS: Troponin I < 0.012 ng/mL (0.000-0.034)
--- NOTE | 2022-01-05 15:13 | PC.NURSE ---
Patient called for room placement without answer.
--- NOTE | 2022-01-05 15:17 | PC.NURSE ---
LWBS d/t wait time, called multiple times
[2022-01-05 18:01] LABS: Troponin I < 0.012 ng/mL (0.000-0.034)
--- NOTE | 2022-01-05 18:30 | ED.CHESTPAIN ---
HPI - Chest Pain General Chief Complaint: Chest Pain <ARCELIA Carson Last Filed: 01/05/22 23:18> Stated Complaint: Chest Pain with Right Arm pain <ARCELIA Carson Last Filed: 01/05/22 23:18> Time Seen by Provider: 01/05/22 17:41 <ARCELIA Carson Last Filed: 01/05/22 23:18> Source: patient <ARCELIA Carson Last Filed: 01/05/22 23:18> Mode of arrival: ambulatory <ARCELIA Carson Last Filed: 01/05/22 23:18> Limitations: no limitations <ARCELIA Carson Last Filed: 01/05/22 23:18> History of Present Illness HPI narrative: Patient is a 66-year-old female who presents to the ED with report of chest pain. Patient is primarily Khmer speaking, [employer] lead coater was utilized to assist with translation. Patient reports having intermittent left-sided chest pain going into her left arm for the past 5 days. Pain worse with movement of her left arm, pressing on chest, taking deep breath. She has been taking Tylenol and ibuprofen without much relief. Pain became more constant this morning, prompting her presentation. Patient denies a history of heart disease. She has never had a stress test. She reports intermittent shortness of breath, but denies recent cough or cold symptoms, fever, abdominal pain, nausea, vomiting, BLE pain or swelling. <ARCELIA Carson Last Filed: 01/05/22 23:18> Related Data Home Medications: Home Medications Medication Instructions Recorded Confirmed empagliflozin 10 mg tablet 10 mg DAILY 08/12/20 01/16/21 (Jardiance) ezetimibe 10 mg tablet (Zetia) 10 mg PO DAILY 08/12/20 01/16/21 lisinopril 2.5 mg tablet 2.5 mg PO DAILY 08/12/20 01/16/21 omeprazole 40 mg capsule,delayed 40 mg PO DAILY 08/12/20 01/16/21 release sitagliptin 50 mg-metformin 500 mg 1 tablet PO BID 08/12/20 01/16/21 tablet (Janumet) <Tracy Aparicio PA-C - Last Filed: 01/05/22 23:18> Allergies/Adverse Reactions: Allergies Allergy/AdvReac Type Severity Reaction Status Date / Time vancomycin Allergy Intermediate Redness of Verified 01/05/22 13:53 Skin aspirin Allergy Unknown Itching Verified 01/05/22 13:53 <Tracy Aparicio PA-C - Last Filed: 01/05/22 23:18> Review of Systems Review of Systems: CONSTITUTIONAL: Denies fever, chills, or sweats. ENT: Denies rhinorrhea, congestion, sore throat. CARDIOVASCULAR: Reports left-sided chest pain, into left arm. Denies BLE edema. RESPIRATORY: Reports shortness of breath. Denies cough. GASTROINTESTINAL: Denies abdominal pain, nausea, vomiting, or diarrhea. MUSCULOSKELETAL: Denies back pain, joint pain, or myalgia. <Tracy Aparicio PA-C - Last Filed: 01/05/22 23:18> All systems reviewed & are unremarkable except as noted in HPI and below <Tracy Aparicio PA-C - Last Filed: 01/05/22 23:18> [facility] Past Medical History Medical History: Medical History Bilateral adrenal adenomas Chondromalacia, right knee Diabetes mellitus Diverticulosis has had a colonoscopy in the last 10 years GERD (gastroesophageal reflux disease) HLD (hyperlipidemia) Hx SBO H/o partial SBO 04/2019 Hypertension <Tracy Aparicio PA-C - Last Filed: 01/05/22 23:18> Surgical History Surgical History: Surgical History H/O hand surgery right hand after accident History of abdominal surgery benign masses removed per patient History of breast lump removal History of hysterectomy History of laparotomy x2 Hx of cholecystectomy <Tracy Aparicio PA-C - Last Filed: 01/05/22 23:18> Family History Family History: Family History Mother Diabetes mellitus Father Hypertension Other Cerebrovascular accident Family history of cardiovascular diseas
[2022-01-05] MEDS: SODIUM CHLORIDE 0.9% IV 1,000 ML 999 ML IV CONT (20:09)
[2022-01-05] MEDS: KETOROLAC 30 MG/ML VIAL (*BKC) IV PUSH (20:09)
[2022-01-05 21:14] LABS: D Dimer < 0.27 ug/mL (<0.48)
== END 2022-01-05 22:03 | disposition home or self-care (01) ==
PROVIDERS: Emergency Medicine; Physician Assistant; Emergency Provider Emergency Medicine; PCP Family Medicine
DX: R07.89 Other chest pain (principal); E11.9 Type 2 diabetes mellitus without complications; I10 Essential (primary) hypertension; Z79.84 Long term (current) use of oral hypoglycemic drugs; E78.5 Hyperlipidemia, unspecified; K21.9 Gastro-esophageal reflux disease without esophagitis; Z90.710 Acquired absence of both cervix and uterus; F17.210 Nicotine dependence, cigarettes, uncomplicated
CPT/HCPCS: 36415; 71046; 80053; 83690; 84484; 85025; 85380; 85610; 85730; 93005; 96361; 96374; 99284; J1885; J7030

== ENCOUNTER 2022-02-23 01:03 | Emergency (ER) | payer MEDICARE, MEDICAID, SELFPAY ==
--- NOTE | ~2022-02-23 | XR_ITS ---
EXAMINATION: XR chest 2V DATE: 02/23/2022 03:17 INDICATION: Cough. TECHNIQUE: Frontal and lateral views of the chest were obtained. COMPARISON: Chest 2 views 01/05/2022 FINDINGS: There is mild atelectasis at the lung bases. No pleural effusion or pneumothorax. The heart size is normal. Surgical clips in the right upper quadrant are likely from cholecystectomy. IMPRESSION: 1. Mild atelectasis at the lung bases. Reviewed, dictated and finalized at location A. [facility]
[2022-02-23 01:26] VITALS: BP 180/78; PULSE 69; RESP 16; TEMP 36.4; O2SAT 99
[2022-02-23 02:42] LABS: Influenza A QL RT-PCR Negative (Negative); Influenza B QL RT-PCR Negative (Negative); SARS-CoV-2 RNA PCR Negative
--- NOTE | 2022-02-23 03:48 | ED.URI ---
HPI - URI/Sore Throat General Chief Complaint: Upper Respiratory Infection Stated Complaint: Cough Time Seen by Provider: 02/23/22 02:21 Source: patient and RN notes reviewed Mode of arrival: ambulatory Limitations: language barrier (used video information services tech) History of Present Illness HPI Narrative: This is a 66 year old female who presents for evaluation of cough. She reports having nonproductive cough for 4 days. She has been coughing so much that she developed upper back pain , throat pain and right ear pain. Her throat pain hurt worse with cough. She denies chest pain, sob, nausea, vomiting or fever. She has been taking tylenol and nyquil for her symptoms. She is worried about having pneumonia. Related Data Home Medications Medication Instructions Recorded Confirmed empagliflozin 10 mg tablet 10 mg DAILY 08/12/20 01/16/21 (Jardiance) ezetimibe 10 mg tablet (Zetia) 10 mg PO DAILY 08/12/20 01/16/21 lisinopril 2.5 mg tablet 2.5 mg PO DAILY 08/12/20 01/16/21 omeprazole 40 mg capsule,delayed 40 mg PO DAILY 08/12/20 01/16/21 release sitagliptin phosphate 50 1 tablet PO BID 08/12/20 01/16/21 mg-metformin 500 mg tablet (Janumet) Allergies Allergy/AdvReac Type Severity Reaction Status Date / Time vancomycin Allergy Intermediate Redness of Verified 01/05/22 13:53 Skin aspirin Allergy Unknown Itching Verified 01/05/22 13:53 Review of Systems Review of Systems: All systems reviewed & are unremarkable except as noted in HPI and below Constitutional: Constitutional: Denies chills, Denies fatigue and Denies fever(s) Cardiovascular: Cardiovascular: Denies chest pain and Denies rapid heart rate Respiratory: Respiratory: Reports cough and Denies dyspnea Gastrointestinal: Gastrointestinal: Denies abdominal pain, Denies nausea and Denies vomiting PMFSH Past Medical History Medical History Bilateral adrenal adenomas Chondromalacia, right knee Diabetes mellitus Diverticulosis has had a colonoscopy in the last 10 years GERD (gastroesophageal reflux disease) HLD (hyperlipidemia) Hx SBO H/o partial SBO 04/2019 Hypertension Surgical History Surgical History H/O hand surgery right hand after accident History of abdominal surgery benign masses removed per patient History of breast lump removal History of hysterectomy History of laparotomy x2 Hx of cholecystectomy Family History Family History Mother Diabetes mellitus Father Hypertension Other Cerebrovascular accident Family history of cardiovascular disease Social History Social History Social History: Pt smokes about 2 cigarettes a day. She does not drink alcohol. She lives at home with her and daughter. She would like to be a full code. If she is unable to make decisions for herself, she would like her daughter, Luisa, to make decisions for her. Her PCP is ISAIAS Egan Smoking packs per day: 0.1 Smoking cigarettes per day: 2.0 Years smoked: 22 Smoking pack-years: 2.20 Smoking status: Current every day smoker Alcohol intake: never Substance use: never Gender identity (if verbalized by the patient): Female Spiritual care concerns: No Exam Const: General: no acute distress and alert Nutritional Appearance: well nourished Orientation/consciousness: patient oriented x3 HENMT: Head: normal to inspection Ears: external ears normal Face/Nose/Sinus: Normal external nose present Face and sinus: normal facial exam Mouth: Yes Normal oral and palatal mucosa present, Yes lip normal and Yes moist mucous membranes Throat: posterior oropharynx normal and uvula midline Eyes: Conjunctivae: conjunctivae normal Pupils: Equal, round and reactive pupils present EOM: EOMs intact grey
== END 2022-02-23 04:12 | disposition home or self-care (01) ==
PROVIDERS: Physician Assistant; Emergency Provider General Practice; PCP Family Medicine
DX: J06.9 Acute upper respiratory infection, unspecified (principal); Z20.822 Contact with and (suspected) exposure to COVID-19; E11.9 Type 2 diabetes mellitus without complications; E78.5 Hyperlipidemia, unspecified; I10 Essential (primary) hypertension; K21.9 Gastro-esophageal reflux disease without esophagitis; Z90.710 Acquired absence of both cervix and uterus; F17.210 Nicotine dependence, cigarettes, uncomplicated
CPT/HCPCS: 71046; 87636; 99283

== ENCOUNTER 2023-08-25 16:11 | Emergency (ER) | payer MEDICARE, MEDICAID, SELFPAY ==
[2023-08-25 16:12] VITALS: BP 178/84; PULSE 100; RESP 16; TEMP 36.7; O2SAT 100
--- NOTE | 2023-08-25 17:32 | ED.EAR ---
HPI - Ear Problem General Chief complaint: Ear Stated complaint: R Ear R hand pain Time Seen by Provider: 08/25/23 16:54 Source: patient Mode of arrival: ambulatory Limitations: no limitations and language barrier History of Present Illness HPI Narrative: Patient is a 67 y/o female who presents to the ED with c/o R ear pain and a wart to her R hand. Patient is Sami-speaking. [employer] direct support professional home health was utilized for assistance with translation. Patient reports having pain in her right ear for the past 3 days. She does use Q-tips. Denies drainage from ear. Denies hearing changes. She also reports having a wart to her right palmar hand that has been present for quite some time, but began hurting over the last couple of days. Denies drainage, fevers. Related Data Home Medications Medication Instructions Recorded Confirmed empagliflozin 10 mg tablet 10 mg DAILY 08/12/20 01/16/21 (Jardiance) ezetimibe 10 mg tablet (Zetia) 10 mg PO DAILY 08/12/20 01/16/21 lisinopril 2.5 mg tablet 2.5 mg PO DAILY 08/12/20 01/16/21 omeprazole 40 mg capsule,delayed 40 mg PO DAILY 08/12/20 01/16/21 release sitagliptin phosphate 50 1 tablet PO BID 08/12/20 01/16/21 mg-metformin 500 mg tablet (Janumet) Allergies Allergy/AdvReac Type Severity Reaction Status Date / Time vancomycin Allergy Intermediate Redness of Verified 03/20/22 11:31 Skin aspirin Allergy Unknown Itching Verified 03/20/22 11:31 Review of Systems Review of Systems: CONSTITUTIONAL: Denies fever, chills, or sweats. ENT: See HPI. MUSCULOSKELETAL: See HPI. All systems reviewed & are unremarkable except as noted in HPI and below PMFSH Past Medical History Medical History Bilateral adrenal adenomas Chondromalacia, right knee Diabetes mellitus Diverticulosis has had a colonoscopy in the last 10 years GERD (gastroesophageal reflux disease) HLD (hyperlipidemia) Hx SBO H/o partial SBO 04/2019 Hypertension Right knee DJD Surgical History Surgical History H/O hand surgery right hand after accident History of abdominal surgery benign masses removed per patient History of breast lump removal History of hysterectomy History of laparotomy x2 Hx of cholecystectomy Family History Family History Mother Diabetes mellitus Father Hypertension Other Cerebrovascular accident Family history of cardiovascular disease Social History Social History Social History: Pt smokes about 2 cigarettes a day. She does not drink alcohol. She lives at home with her and daughter. She would like to be a full code. If she is unable to make decisions for herself, she would like her daughter, Luisa, to make decisions for her. Her PCP is ISAIAS Egan Smoking packs per day: 0.1 Smoking cigarettes per day: 2.0 Years smoked: 22 Smoking pack-years: 2.20 Smoking status: Current every day smoker Alcohol intake: never Substance use: never Gender identity (if verbalized by the patient): Female Spiritual care concerns: No Exam Narrative: GENERAL: Well appearing, well-nourished, non-toxic, in no acute distress. HEAD: Normocephalic, atraumatic. ENT: L TM clear. R TM nonerythematous/nonbulging. Erythema noted to R EAC with mild swelling. Trace amounts of cerumen in R canal, no impaction. TTP with manipulation of pinna on R ear/palpation of tragus. No drainage. No dental fracture or evidence of caries. No dental pain/gum inflammation. No trismus or stridor. RESPIRATORY: Airway patent, respirations nonlabored. CARDIOVASCULAR: Regular rate and rhythm MUSCULOSKELETAL: Moves all extremities. No gross deformities. SKIN: Warm, dry, normal color. NEURO: A&O X3. Speech clear. PSYCHIATRIC: Appropriate mood and aff
[2023-08-25] MEDS: OFLOXACIN 0.3% OPHTH SOLN 5 ML BTL 10 DROP RIGHT EAR (18:02)
[2023-08-25] MEDS: ACETAMINOPHEN 500 MG TABLET 1000 MG PO (18:03)
[2023-08-25 18:04] VITALS: BP 131/77; PULSE 80; RESP 18; O2SAT 98
== END 2023-08-25 18:09 | disposition home or self-care (01) ==
PROVIDERS: Emergency Provider Physician Assistant; PCP Family Medicine
DX: B07.9 Viral wart, unspecified (principal); H60.501 Unspecified acute noninfective otitis externa, right ear; E11.9 Type 2 diabetes mellitus without complications; K21.9 Gastro-esophageal reflux disease without esophagitis; E78.5 Hyperlipidemia, unspecified; I10 Essential (primary) hypertension; F17.210 Nicotine dependence, cigarettes, uncomplicated
CPT/HCPCS: 99283; A9270

== ENCOUNTER 2023-10-05 23:06 | Emergency (ER) | payer MEDICARE, MEDICAID, SELFPAY ==
--- NOTE | ~2023-10-05 | XR_ITS ---
Left Knee Technique: AP, lateral, and oblique views were obtained. Clinical History: Pain Findings: No fracture or dislocation is seen. Osseous alignment is anatomic. Mild tricompartmental de generative spurring is present. Soft tissues are unremarkable. No joint effusion is seen. Impression: Mild tricompartmental degenerative spurring. Reviewed, dictated and finalized at location . Impression: Mild tricompartmental degenerative spurring.
[2023-10-05 23:08] VITALS: BP 190/78; PULSE 93; RESP 20; TEMP 36.1; O2SAT 100
--- NOTE | 2023-10-06 01:26 | ED.EXTPRO ---
HPI - Extremity Problem General Chief complaint: Extremity Problem,Nontraumatic Stated complaint: knee pain Time Seen by Provider: 10/06/23 01:15 Source: patient Mode of arrival: ambulatory Limitations: language barrier (Czech as second language but fluent enough for health history) History of Present Illness HPI Narrative: Patient presents with left knee pain. No injury/fall. Pain started when she stood up. History of pain in this knee and has seen Dr Yenny sebastian for an injection. Has an appointment to see him again 11/14/23. Has been wearing a compression sleeve but it feels like it might give out. Has been taking 1 tablet of ibuprofen every 6 hours. No history of DVT. No cancer. No recent surgery. No calf pain or pitting edema. Denies paresis, etc. Related Data Home Medications Medication Instructions Recorded Confirmed empagliflozin 10 mg tablet 10 mg DAILY 08/12/20 01/16/21 (Jardiance) ezetimibe 10 mg tablet (Zetia) 10 mg PO DAILY 08/12/20 01/16/21 lisinopril 2.5 mg tablet 2.5 mg PO DAILY 08/12/20 01/16/21 omeprazole 40 mg capsule,delayed 40 mg PO DAILY 08/12/20 01/16/21 release sitagliptin phosphate 50 1 tablet PO BID 08/12/20 01/16/21 mg-metformin 500 mg tablet (Janumet) Allergies Allergy/AdvReac Type Severity Reaction Status Date / Time vancomycin Allergy Intermediate Redness of Verified 03/20/22 11:31 Skin aspirin Allergy Unknown Itching Verified 03/20/22 11:31 [facility] Past Medical History Medical History Bilateral adrenal adenomas Chondromalacia, right knee Diabetes mellitus Diverticulosis has had a colonoscopy in the last 10 years GERD (gastroesophageal reflux disease) HLD (hyperlipidemia) Hx SBO H/o partial SBO 04/2019 Hypertension Right knee DJD Surgical History Surgical History H/O hand surgery right hand after accident History of abdominal surgery benign masses removed per patient History of breast lump removal History of hysterectomy History of laparotomy x2 Hx of cholecystectomy Family History Family History Mother Diabetes mellitus Father Hypertension Other Cerebrovascular accident Family history of cardiovascular disease Social History Social History Social History: Pt smokes about 2 cigarettes a day. She does not drink alcohol. She lives at home with her and daughter. She would like to be a full code. If she is unable to make decisions for herself, she would like her daughter, Luisa, to make decisions for her. Her PCP is ISAIAS Egan Smoking packs per day: 0.1 Smoking cigarettes per day: 2.0 Years smoked: 22 Smoking pack-years: 2.20 Smoking status: Current every day smoker Alcohol intake: never Substance use: never Gender identity (if verbalized by the patient): Female Spiritual care concerns: No Exam Narrative: GENERAL: Well-appearing, well-nourished, and in no acute distress. HEAD: Normocephalic, atraumatic. EYES: Non injected, non icteric ENT: Nares clear, no rhinorrhea or epistaxis. NECK: Supple. CHEST: Speaking in full sentences. No respiratory distress. HEART: Regular rate and rhythm. . ABDOMEN: Soft, nondistended. EXTREMITIES: Normal range of motion. 5/5 strength bilateral ankle dorsiflexion/plantarflexion, knee flexion/extension, hip abduction/adduction, flexion. TTP along medial aspect/joint line of left knee. No laxity on exam. Circumference 10cm from tibial tuberosity 32 cm on R and 33cm on L. SKIN: Warm, dry, no rash. No overlying skin changes. Warm and well perfused but otherwise without champ erythema. NEURO: No focal deficits. Alert and oriented x3. Sensation intact throughout. PSYCH: Normal mood and affect. Course Vital Signs Vital signs: Vital
[2023-10-06] MEDS: HYDROcodone/acetaminophen (*CRX) 5-325 MG TABLET 1 TAB PO (01:53)
[2023-10-06] MEDS: KETOROLAC 30 MG/ML VIAL (*BKC) 15 MG IM (03:28)
[2023-10-06 03:34] VITALS: BP 166/84; PULSE 90; RESP 15; O2SAT 99
== END 2023-10-06 03:36 | disposition home or self-care (01) ==
PROVIDERS: Emergency Provider Student in an Organized Health Care Education/Training Program; PCP Family Medicine
DX: M25.562 Pain in left knee (principal); E11.9 Type 2 diabetes mellitus without complications; E78.5 Hyperlipidemia, unspecified; I10 Essential (primary) hypertension; F17.210 Nicotine dependence, cigarettes, uncomplicated
CPT/HCPCS: 73564; 96372; 99283; A9270; J1885